=== PATIENT | male | born 1945 | race Caucasian/White ===

== ENCOUNTER 2017-11-13 23:15 | Inpatient (IN) | payer MEDICARE, BC ==
[2017-11-14] MEDS ORDERED: diphenhydrAMINE 50 MG/ML SDV IVPUSH ONE (00:08)
[2017-11-14] MEDS ORDERED: Acetaminophen 500 MG Tab PO ONE (00:26)
[2017-11-14] MEDS ORDERED: Sodium Chloride 0.9% 1,000 ML IV SCH (00:30)
--- NOTE | 2017-11-14 00:45 | EDM.PDOC ---
ED HPI GENERAL MEDICAL PROBLEM - General Chief Complaint: Gastrointestinal Problem Stated Complaint: FOOD POISIONING Time Seen by Provider: 11/14/17 00:25 Source of Information: Reports: Patient, Family (Spouse) History Limitations: Reports: Other (Decreased memory for details) - History of Present Illness INITIAL COMMENTS - FREE TEXT/NARRATIVE: Here with his Chief complaint Fever and diarrhea History of present illness 72-year-old male who started feeling ill sometime in the afternoon, perhaps as early as noon. Later in the afternoon started developing diarrhea and some central or upper abdominal cramping. Some nausea but no vomiting He felt chills and his when she took his temperature found that he had a fever which prompted her to bring him here. History of approximately tends inch bowel resection for complications of diverticulitis, cholecystectomy, possibly appendectomy and had cardiac bypass. reports that there has been some confusion over the last couple of months. Some routine tasks that he's done many times before he suddenly forgets how to do. The confusion is much worse since he has become sick with a fever in the last day, for example not knowing which hospitalization in which city he is in. 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 (see below) Other Treatments PROJECT DRILLING ENGINEER: none - Related Data Allergies Allergy/AdvReac Type Severity Reaction Status Date / Time hydrocodone Allergy Hives Verified 11/14/17 00:11 sulfamethoxazole Allergy Hives Verified 11/14/17 00:10 [From Bactrim] trimethoprim [From Bactrim] Allergy Hives Verified 11/14/17 00:10 Home Meds: Home Meds DULoxetine HCl [Duloxetine HCl] 60 mg PO DAILY 11/14/17 [History] Gabapentin [Neurontin] 600 mg PO 6XDAY 11/14/17 [History] Hydrochlorothiazide 25 mg PO DAILY 11/14/17 [History] Losartan [Cozaar] 100 mg PO DAILY 11/14/17 [History] Pravastatin Sodium 20 mg PO DAILY 11/14/17 [History] Tamsulosin HCl 0.4 mg PO DAILY 11/14/17 [History] predniSONE [Prednisone] 10 mg PO DAILY 11/14/17 [History] traMADol HCl [Tramadol HCl] 100 mg PO TID 11/14/17 [History] Past Medical History HEENT History: Reports: Impaired Vision Cardiovascular History: Reports: Bypass, High Cholesterol, Hypertension Gastrointestinal History: Reports: Bowel Obstruction, Diverticulosis, Hiatal Hernia Genitourinary History: Reports: BPH - Infectious Disease History Infectious Disease History: Reports: Chicken Pox, Measles - Past Surgical History HEENT Surgical History: Reports: Tonsillectomy Cardiovascular Surgical History: Reports: Coronary Artery Bypass GI Surgical History: Reports: Appendectomy, Cholecystectomy, Other (See Below) Other GI Surgeries/Procedures: Bowel Recetion Social & Family History - Family History Family Medical History: Unobtainable - Tobacco Use Smoking Status *Q: Never Smoker Second Hand Smoke Exposure: No - Caffeine Use Caffeine Use: Reports: Coffee - Alcohol Use Days Per Week of Alcohol Use: 7 Number of Drinks Per Day: 3 Total Drinks Per Week: 21 - Recreational Drug Use Recreational Drug Use: No ED ROS GENERAL - Review of Systems Review Of Systems: See Below Constitutional: Reports: Fever, Chills, Decreased Appetite HEENT: Reports: No Symptoms Respiratory: Reports: No Symptoms Cardiovascular: Reports: No Symptoms GI/Abdominal: Reports: Abdominal Pain (Mild, upper to mid abdomen, cramping), Diarrhea (5 times since the onset), Decreased Appetite, Nausea. Denies: Black Stool (No), Vomiting Musculoskeletal: Reports: No Symptoms Skin: Reports: No Symptoms Neurological: Reports: No Symptoms Psychiatric: Reports: Other (Decreased memory) ED EXAM, GI/ABD - Physical Exam Exam: See Below Exam Limited By: No Limitations General Appearance: Alert, Mild Distress, Other (Febrile and tachycardic, jovial and pleasant, blood pressure elevated) Eyes: Bilateral: Normal Appearance Ears: Normal External Exam, Normal TMs Nose: Normal Inspection, Normal Mucosa Throat/Mouth: Normal Inspection, Normal Oropharynx Head: Atraumatic, Normocephalic Neck: Normal Inspection, Supple Respiratory/Chest: No Respiratory Distress, No Accessory Muscle Use Cardiovascular: Regular Rate, Rhythm, Tachycardia GI/Abdominal Exam: Normal Bowel Sounds, Soft, Non-Tender, No Distention. No: Guarding, Rigid, Rebound, Tender Extremities: Normal Inspection Neurological: Alert, No Motor/Sensory Deficits Psychiatric: Normal Affect Skin Exam: Warm, Dry, Intact, Normal Color. No: Diaphoretic Course - Vital Signs Last Recorded V/S: Last Vital Signs Temp 38.1 C 11/14/17 02:26 Pulse 105 H 11/14/17 02:26 Resp 20 11/14/17 02:26 BP 132/69 11/14/17 02:26 Pulse Ox 96 11/14/17 02:26 - Orders/Labs/Meds Orders: Active Orders 24 hr Category Date Time Status Patient Status [ADT] Routine ADT 11/14/17 03:33 Ordered Oxygen Therapy [RC] PRN Care 11/14/17 03:33 Ordered Peripheral IV Care [RC] . DIRECTED Care 11/14/17 00:26 Active Up With Assistance [RC] ASDIRECTED Care 11/14/17 03:33 Ordered VTE/DVT Education [RC] Per Unit Routine Care 11/14/17 03:33 Ordered Vital Signs [RC] Q4H Care 11/14/17 03:33 Ordered Regular Diet [DIET] Diet 11/14/17 Breakfast Ordered BASIC METABOLIC PANEL,BMP [CHEM] Routine Lab 11/14/17 03:33 Ordered CBC WITH AUTO DIFF [HEME] Routine Lab 11/14/17 03:33 Ordered CULTURE BLOOD [BC] Urgent Lab 11/14/17 00:40 Received CULTURE BLOOD [BC] Urgent Lab 11/14/17 00:45 Received UA W/MICROSCOPIC [URIN] Stat Lab 11/14/17 01:35 Ordered Acetaminophen [Tylenol] Med 11/14/17 03:33 Ordered 650 mg PO Q4H PRN Ondansetron [Zofran ODT] Med 11/14/17 03:33 Ordered 4 mg PO Q8H PRN Sodium Chloride 0.9% [Normal Saline] 1,000 ml Med 11/14/17 00:30 Active IV ASDIRECTED Sodium Chloride 0.9% [Normal Saline] 1,000 ml Med 11/14/17 00:30 Active IV ASDIRECTED Blood Culture x2 Reflex Set [OM.PC] Urgent Oth 11/14/17 00:26 Ordered Peripheral IV Insertion Adult [OM.PC] Routine Oth 11/14/17 00:25 Ordered Resuscitation Status Routine Resus Stat 11/14/17 03:33 Ordered Medication Orders Acetaminophen (Tylenol) 650 mg PO Q4H PRN PRN Reason: Pain (Mild 1-3)/fever Sodium Chloride (Normal Saline) 1,000 mls @ 150 mls/hr IV ASDIRECTED DEAN Last Admin: 11/14/17 01:14 Dose: 250 mls/hr Sodium Chloride (Normal Saline) 1,000 mls @ 800 mls/hr IV ASDIRECTED DEAN Last Admin: 11/14/17 00:39 Dose: 800 mls/hr Ondansetron HCl (Zofran Odt) 4 mg PO Q8H PRN PRN Reason: Nausea able to take PO Labs: Laboratory Tests 11/14/17 11/14/17 11/14/17 Range/Units 00:40 00:40 00:40 WBC 12.2 H (4.5-11.0) K/uL RBC 3.98 L (4.30-5.90) M/uL Hgb 12.5 (12.0-15.0) g/dL Hct 39.5 L (40.0-54.0) % MCV 99 H (80-98) fL MCH 31 (27-31) pg MCHC 32 (32-36) % Plt Count 218 (150-400) K/uL Sodium 140 (140-148) mmol/L Potassium 4.1 (3.6-5.2) mmol/L Chloride 103 (100-108) mmol/L Carbon Dioxide 27 (21-32) mmol/L Anion Gap 10.3 (5.0-14.0) mmol/L BUN 27 H (7-18) mg/dL Creatinine 1.6 H (0.8-1.3) mg/dL Est Cr Clr Drug Dosing 43.79 mL/min Estimated GFR (MDRD) 43 L (>60) Glucose 95 (74-106) mg/dL Lactic Acid 1.3 (0.4-2.0) mmol/L Calcium 8.1 L (8.5-10.1) mg/dL Total Bilirubin 0.8 (0.2-1.0) mg/dL AST 15 (15-37) U/L ALT 25 (12-78) U/L Alkaline Phosphatase 103 (46-116) U/L Total Protein 6.6 (6.4-8.2) g/dL Albumin 3.2 L (3.4-5.0) g/dL Globulin 3.4 (2.3-3.5) g/dL Albumin/Globulin Ratio 0.9 L (1.2-2.2) Lipase (73-393) U/L Urine Color Urine Appearance Urine pH (4.5-8.0) Ur Specific [place] (1.008-1.030) Urine Protein (NEGATIVE) mg/dL Urine Glucose (UA) (NEGATIVE) mg/dL Urine Ketones (NEGATIVE) mg/dL Urine Occult Blood (NEGATIVE) Urine Nitrite (NEGAITVE) Urine Bilirubin (NEGATIVE) Urine Urobilinogen (NORMAL) mg/dL Ur Leukocyte Esterase (NEGATIVE) Urine RBC (0-5) Urine WBC (0-5) Ur Epithelial Cells Amorphous Sediment Urine Bacteria Urine Mucus 11/14/17 11/14/17 Range/Units 00:40 01:35 WBC (4.5-11.0) K/uL RBC (4.30-5.90) M/uL Hgb (12.0-15.0) g/dL Hct (40.0-54.0) % MCV (80-98) fL MCH (27-31) pg MCHC (32-36) % Plt Count (150-400) K/uL Sodium (140-148) mmol/L Potassium (3.6-5.2) mmol/L Chloride (100-108) mmol/L Carbon Dioxide (21-32) mmol/L Anion Gap (5.0-14.0) mmol/L BUN (7-18) mg/dL Creatinine (0.8-1.3) mg/dL Est Cr Clr Drug Dosing mL/min Estimated GFR (MDRD) (>60) Glucose (74-106) mg/dL Lactic Acid (0.4-2.0) mmol/L Calcium (8.5-10.1) mg/dL Total Bilirubin (0.2-1.0) mg/dL AST (15-37) U/L ALT (12-78) U/L Alkaline Phosphatase (46-116) U/L Total Protein (6.4-8.2) g/dL Albumin (3.4-5.0) g/dL Globulin (2.3-3.5) g/dL Albumin/Globulin Ratio (1.2-2.2) Lipase 111 (73-393) U/L Urine Color Yellow Urine Appearance Clear Urine pH 5.0 (4.5-8.0) Ur Specific [place] 1.015 (1.008-1.030) Urine Protein Negative (NEGATIVE) mg/dL Urine Glucose (UA) Normal (NEGATIVE) mg/dL Urine Ketones Negative (NEGATIVE) mg/dL Urine Occult Blood Moderate (NEGATIVE) Urine Nitrite Negative (NEGAITVE) Urine Bilirubin Small (NEGATIVE) Urine Urobilinogen Normal (NORMAL) mg/dL Ur Leukocyte Esterase Negative (NEGATIVE) Urine RBC 0-5 (0-5) Urine WBC 0-5 (0-5) Ur Epithelial Cells Few Amorphous Sediment Not seen Urine Bacteria Few Urine Mucus Not seen Meds: Medications Generic Name Dose Route Start Last Admin Trade Name Freq PRN Reason Stop Dose Admin Acetaminophen 650 mg 11/14/17 03:33 Tylenol PO Q4H PRN Pain (Mild 1-3)/fever Sodium Chloride 1,000 mls @ 150 mls/hr 11/14/17 00:30 11/14/17 01:14 Normal Saline IV 250 mls/hr ASDIRECTED DEAN Administration Sodium Chloride 1,000 mls @ 800 mls/hr 11/14/17 00:30 11/14/17 00:39 Normal Saline IV 800 mls/hr ASDIRECTED DEAN Administration Ondansetron HCl 4 mg 11/14/17 03:33 Zofran Odt PO Q8H PRN Nausea able to take PO Discontinued Medications Generic Name Dose Route Start Last Admin Trade Name Freq PRN Reason Stop Dose Admin Acetaminophen 1,000 mg 11/14/17 00:26 11/14/17 00:39 Tylenol Extra Strength PO 11/14/17 00:27 1,000 mg ONETIME ONE Administration - Re-Assessments/Exams Free Text/Narrative Re-Assessment/Exam: 11/14/17 00:44 72-year-old male with nausea diarrhea fever since approximately 8-10 hours. Notable fever and tachycardia. Differential diagnosis includes gastritis colitis diverticulitis among others. Intravenous saline, acetaminophen 1000 mg by mouth Lab tests including blood cultures 11/14/17 03:30 Mild elevation of white count, no significant liver enzyme elevation Mild elevation of urea and creatinine In view of his increased confusion, fever and tachycardia, recommended admission , Dr. Hendricks accepting physician Departure - Departure Time of Disposition: 03:31 Disposition: Admitted As Inpatient 65 Condition: Good Clinical Impression: Acute gastroenteritis, Moderate dehydration, Confusion associated with infection - Discharge Information Referrals: PCP,None [Primary Care Provider] - Forms: ED Department Discharge - My Orders Last 24 Hours: My Active Orders 11/14/17 00:25 Peripheral IV Insertion Adult [OM.PC] Routine 11/14/17 00:26 Peripheral IV Care [RC] . DIRECTED Blood Culture x2 Reflex Set [OM.PC] Urgent 11/14/17 00:30 Sodium Chloride 0.9% [Normal Saline] 1,000 ml IV ASDIRECTED Sodium Chloride 0.9% [Normal Saline] 1,000 ml IV ASDIRECTED 11/14/17 00:40 CULTURE BLOOD [BC] Urgent 11/14/17 00:45 CULTURE BLOOD [BC] Urgent 11/14/17 01:35 UA W/MICROSCOPIC [URIN] Stat 11/14/17 03:33 Patient Status [ADT] Routine Oxygen Therapy [RC] PRN Up With Assistance [RC] ASDIRECTED VTE/DVT Education [RC] Per Unit Routine Vital Signs [RC] Q4H BASIC METABOLIC PANEL,BMP [CHEM] Routine CBC WITH AUTO DIFF [HEME] Routine Acetaminophen [Tylenol] 650 mg PO Q4H PRN Ondansetron [Zofran ODT] 4 mg PO Q8H PRN Resuscitation Status Routine 11/14/17 Breakfast Regular Diet [DIET] - Assessment/Plan Last 24 Hours: My Active Orders 11/14/17 00:25 Peripheral IV Insertion Adult [OM.PC] Routine 11/14/17 00:26 Peripheral IV Care [RC] . DIRECTED Blood Culture x2 Reflex Set [OM.PC] Urgent 11/14/17 00:30 Sodium Chloride 0.9% [Normal Saline] 1,000 ml IV ASDIRECTED Sodium Chloride 0.9% [Normal Saline] 1,000 ml IV ASDIRECTED 11/14/17 00:40 CULTURE BLOOD [BC] Urgent 11/14/17 00:45 CULTURE BLOOD [BC] Urgent 11/14/17 01:35 UA W/MICROSCOPIC [URIN] Stat 11/14/17 03:33 Patient Status [ADT] Routine Oxygen Therapy [RC] PRN Up With Assistance [RC] ASDIRECTED VTE/DVT Education [RC] Per Unit Routine Vital Signs [RC] Q4H BASIC METABOLIC PANEL,BMP [CHEM] Routine CBC WITH AUTO DIFF [HEME] Routine Acetaminophen [Tylenol] 650 mg PO Q4H PRN Ondansetron [Zofran ODT] 4 mg PO Q8H PRN Resuscitation Status Routine 11/14/17 Breakfast Regular Diet [DIET]
[2017-11-14] MEDS: Sodium Chloride 0.9% 1,000 ML IV SCH ×4 (01:14→19:51)
[2017-11-14] MEDS ORDERED: Ondansetron 4 MG Tab.DIS PO PRN (03:33)
[2017-11-14] MEDS: Acetaminophen 325 MG Tab PO PRN ×3 (04:49→15:15)
[2017-11-14] MEDS ORDERED: cefTRIAXone 1 GM in Sodium Chloride 0.9% 50 ML IV SCH (07:00)
[2017-11-14] MEDS ORDERED: Levofloxacin/Dextrose 5%-Water 500 MG in Premix Bag 1 BAG IV SCH ×2 (07:00→08:00)
[2017-11-14] MEDS ORDERED: Iohexol 300 MG/ML 30 ML Bottle PO ONE (09:11)
--- NOTE | 2017-11-14 12:58 | CT ---
Chest Abdomen Pelvis wo Cont INDICATION: fever TECHNIQUE: CT images of the chest, abdomen and pelvis performed. Coronal reformatted images obtaine d. Small amount of oral contrast given no IV contrast. Dosage reduction and iterative reconstruction techniques employed. COMPARISON: None FINDINGS: Chest: No infiltrates or pleural effusions. Presumed thyroid goiter extending into the superior mediastinum in the right paratracheal region jason uring 4.5 cm. Other bilateral thyroid nodules. No other mediastinal mass. Coronary artery calcifications. Sternotomy. Small hiatal hernia. Abdomen pelvis: There is wall thickening in the descending colon with adjacent induration. No definit e diverticular disease. Findings may be due to colitis. The appendix is not seen with certainty. No s igns of bowel obstruction. There may be wall thickening extending into the proximal transverse colon. No other signs of colonic wall thickening. Diverticulosis descending and sigmoid colon without defin ite evidence of acute diverticulitis. No kidney stones or signs of obstruction. Small water density c yst lower pole right kidney. Gallbladder surgically absent. Liver, spleen, pancreas, and adrenal glan ds unremarkable. Abdominal aorta normal caliber. No retroperitoneal adenopathy. No free air or ascite s. Small fat-containing bilateral inguinal hernias and a small fat-containing umbilical hernia. Degen erative change right hip. Mild loss of vertebral body height at T12 and L1, likely chronic. Degenerat frank disc disease and hypertrophic change in the spine. IMPRESSION: 1. Colitis involving the ascending colon and proximal transverse colon. 2. Otherwise nothing acute in the chest abdomen or pelvis. 3. Other minor incidental findings, as above.
--- NOTE | 2017-11-14 13:05 | CR ---
Chest 2V INDICATION: abdominal pain, diarrhea, fever COMPARISON: 10/10/2016 FINDINGS: Two views. Mild cardiomegaly unchanged. Sternotomy and CABG. No infiltrates or pleural e ffusions. No signs of pulmonary edema. IMPRESSION: No acute change since 10/10/2016.
[2017-11-14] MEDS ORDERED: metroNIDAZOLE/Normal Saline 500 MG in Premix Bag 1 BAG IV SCH (17:00)
--- NOTE | 2017-11-14 17:52 | PCM.HP ---
H&P History of Present Illness - General Date of Service: 11/14/17 Admit Problem/Dx: Admission Diagnosis/Problem Admission Diagnosis/Problem Acute gastroenteritis Source of Information: Patient, Family History Limitations: Reports: No Limitations - History of Present Illness Initial Comments - Free Text/Narative: Helio is a 72-year-old male comes in with a history of starting to have abdominal pain yesterday increasing in severity to the point where he could hardly function and finally came into the emergency room. He has a history of diarrhea for 6 weeks but didn't have abdominal pain until last evening. He has a history of a episode of diverticulitis which ended up in a partial colon resection about 4 years ago due to diverticular disease. This gentleman has an unknown rheumatoid problem and taking prednisone on a regular basis. He was taking 40 mg a day and this was recently reduced, when he was in [place], back to 10 mg daily. His pain level is a 9-10/10 sharp cramping in character. Onset of Symptoms: Reports: Gradual Generalized Pain Score (Numeric/FACES): 2 - Related Data Allergies/Adverse Reactions: Allergies Allergy/AdvReac Type Severity Reaction Status Date / Time hydrocodone Allergy Hives Verified 11/14/17 00:11 sulfamethoxazole Allergy Hives Verified 11/14/17 00:10 [From Bactrim] trimethoprim [From Bactrim] Allergy Hives Verified 11/14/17 00:10 Home Medications: Home Meds DULoxetine HCl [Duloxetine HCl] 60 mg PO DAILY 11/14/17 [History] Gabapentin [Neurontin] 600 mg PO TID 11/14/17 [History] Hydrochlorothiazide 25 mg PO DAILY 11/14/17 [History] Losartan [Cozaar] 100 mg PO DAILY 11/14/17 [History] Pravastatin Sodium 20 mg PO DAILY 11/14/17 [History] Tamsulosin HCl 0.4 mg PO DAILY 11/14/17 [History] predniSONE [Prednisone] 10 mg PO DAILY 11/14/17 [History] traMADol HCl [Tramadol HCl] 100 mg PO TID 11/14/17 [History] Past Medical History HEENT History: Reports: Impaired Vision Cardiovascular History: Reports: Bypass, High Cholesterol, Hypertension Gastrointestinal History: Reports: Bowel Obstruction, Diverticulosis, Hiatal Hernia Genitourinary History: Reports: BPH - Infectious Disease History Infectious Disease History: Reports: Chicken Pox, Measles - Past Surgical History HEENT Surgical History: Reports: Tonsillectomy Cardiovascular Surgical History: Reports: Coronary Artery Bypass GI Surgical History: Reports: Appendectomy, Cholecystectomy, Other (See Below) Other GI Surgeries/Procedures: Bowel Recetion Social & Family History - Family History Family Medical History: Unobtainable - Tobacco Use Smoking Status *Q: Never Smoker Second Hand Smoke Exposure: No - Caffeine Use Caffeine Use: Reports: Coffee - Alcohol Use Days Per Week of Alcohol Use: 7 Number of Drinks Per Day: 5 Total Drinks Per Week: 35 Date of Last Drink: 11/13/17 Time of Last Drink: 14:00 - Recreational Drug Use Recreational Drug Use: No H&P Review of Systems - Review of Systems: Review Of Systems: See Below General: Reports: Fever, Chills, Weakness HEENT: Reports: No Symptoms Pulmonary: Reports: Shortness of Breath Gastrointestinal: Reports: Abdominal Pain Genitourinary: Reports: Frequency Musculoskeletal: Reports: Joint Pain Neurological: Reports: Weakness Exam - Exam Exam: See Below - Vital Signs Vital Signs: Last Vital Signs Temp 99.9 F 11/14/17 16:04 Pulse 83 11/14/17 16:04 Resp 16 11/14/17 16:04 BP 153/56 H 11/14/17 16:04 Pulse Ox 97 11/14/17 16:04 Weight: 254 lb 15.998 oz - Exam General: Alert, Oriented, 4 HEENT: PERRLA, Hearing Intact, Mucosa Moist & [place], Nares Patent, Normal Nasal Septum, Posterior Pharynx Clear, Conjunctiva Clear, EOMI, EACs Clear, TMs Clear Neck: Supple, Trachea Midline, 2 Lungs: Clear to Auscultation, Normal Respiratory Effort Cardiovascular: Regular Rate, Regular Rhythm GI/Abdominal Exam: Normal Bowel Sounds, Soft, Other (There is mild pain to palpation in the lower abdomen.) Peripheral Pulses: 1+: Radial (L), Radial (R) Skin: Warm Neurological: Cranial Nerves Intact, Reflexes Equal Bilateral Neuro Extensive - Mental Status: Alert Neuro Extensive - Motor, Sensory, Reflexes: CN II-XII Intact Psychiatric: Alert, Normal Affect, Normal Mood - Patient Data Lab Results Last 24 hrs: Laboratory Results - last 24 hr 11/14/17 11/14/17 11/14/17 Range/Units 00:40 00:40 00:40 WBC 12.2 H (4.5-11.0) K/uL RBC 3.98 L (4.30-5.90) M/uL Hgb 12.5 (12.0-15.0) g/dL Hct 39.5 L (40.0-54.0) % MCV 99 H (80-98) fL MCH 31 (27-31) pg MCHC 32 (32-36) % Plt Count 218 (150-400) K/uL Sodium 140 (140-148) mmol/L Potassium 4.1 (3.6-5.2) mmol/L Chloride 103 (100-108) mmol/L Carbon Dioxide 27 (21-32) mmol/L Anion Gap 10.3 (5.0-14.0) mmol/L BUN 27 H (7-18) mg/dL Creatinine 1.6 H (0.8-1.3) mg/dL Est Cr Clr Drug Dosing 43.79 mL/min Estimated GFR (MDRD) 43 L (>60) Glucose 95 (74-106) mg/dL Lactic Acid 1.3 (0.4-2.0) mmol/L Calcium 8.1 L (8.5-10.1) mg/dL Total Bilirubin 0.8 (0.2-1.0) mg/dL AST 15 (15-37) U/L ALT 25 (12-78) U/L Alkaline Phosphatase 103 (46-116) U/L Total Protein 6.6 (6.4-8.2) g/dL Albumin 3.2 L (3.4-5.0) g/dL Globulin 3.4 (2.3-3.5) g/dL Albumin/Globulin Ratio 0.9 L (1.2-2.2) Lipase (73-393) U/L Urine Color Urine Appearance Urine pH (4.5-8.0) Ur Specific [place] (1.008-1.030) Urine Protein (NEGATIVE) mg/dL Urine Glucose (UA) (NEGATIVE) mg/dL Urine Ketones (NEGATIVE) mg/dL Urine Occult Blood (NEGATIVE) Urine Nitrite (NEGAITVE) Urine Bilirubin (NEGATIVE) Urine Urobilinogen (NORMAL) mg/dL Ur Leukocyte Esterase (NEGATIVE) Urine RBC (0-5) Urine WBC (0-5) Ur Epithelial Cells Amorphous Sediment Urine Bacteria Urine Mucus 11/14/17 11/14/17 11/14/17 Range/Units 00:40 01:35 06:45 WBC 12.0 H (4.5-11.0) K/uL RBC 3.80 L (4.30-5.90) M/uL Hgb 12.4 (12.0-15.0) g/dL Hct 37.5 L (40.0-54.0) % MCV 99 H (80-98) fL MCH 33 H (27-31) pg MCHC 33 (32-36) % Plt Count 181 (150-400) K/uL Sodium (140-148) mmol/L Potassium (3.6-5.2) mmol/L Chloride (100-108) mmol/L Carbon Dioxide (21-32) mmol/L Anion Gap (5.0-14.0) mmol/L BUN (7-18) mg/dL Creatinine (0.8-1.3) mg/dL Est Cr Clr Drug Dosing mL/min Estimated GFR (MDRD) (>60) Glucose (74-106) mg/dL Lactic Acid (0.4-2.0) mmol/L Calcium (8.5-10.1) mg/dL Total Bilirubin (0.2-1.0) mg/dL AST (15-37) U/L ALT (12-78) U/L Alkaline Phosphatase (46-116) U/L Total Protein (6.4-8.2) g/dL Albumin (3.4-5.0) g/dL Globulin (2.3-3.5) g/dL Albumin/Globulin Ratio (1.2-2.2) Lipase 111 (73-393) U/L Urine Color Yellow Urine Appearance Clear Urine pH 5.0 (4.5-8.0) Ur Specific [place] 1.015 (1.008-1.030) Urine Protein Negative (NEGATIVE) mg/dL Urine Glucose (UA) Normal (NEGATIVE) mg/dL Urine Ketones Negative (NEGATIVE) mg/dL Urine Occult Blood Moderate (NEGATIVE) Urine Nitrite Negative (NEGAITVE) Urine Bilirubin Small (NEGATIVE) Urine Urobilinogen Normal (NORMAL) mg/dL Ur Leukocyte Esterase Negative (NEGATIVE) Urine RBC 0-5 (0-5) Urine WBC 0-5 (0-5) Ur Epithelial Cells Few Amorphous Sediment Not seen Urine Bacteria Few Urine Mucus Not seen 11/14/17 Range/Units 06:45 WBC (4.5-11.0) K/uL RBC (4.30-5.90) M/uL Hgb (12.0-15.0) g/dL Hct (40.0-54.0) % MCV (80-98) fL MCH (27-31) pg MCHC (32-36) % Plt Count (150-400) K/uL Sodium 139 L (140-148) mmol/L Potassium 4.1 (3.6-5.2) mmol/L Chloride 105 (100-108) mmol/L Carbon Dioxide 23 (21-32) mmol/L Anion Gap 15.1 H (5.0-14.0) mmol/L BUN 23 H (7-18) mg/dL Creatinine 1.4 H (0.8-1.3) mg/dL Est Cr Clr Drug Dosing 50.05 mL/min Estimated GFR (MDRD) 50 L (>60) Glucose 92 (74-106) mg/dL Lactic Acid (0.4-2.0) mmol/L Calcium 7.8 L (8.5-10.1) mg/dL Total Bilirubin (0.2-1.0) mg/dL AST (15-37) U/L ALT (12-78) U/L Alkaline Phosphatase (46-116) U/L Total Protein (6.4-8.2) g/dL Albumin (3.4-5.0) g/dL Globulin (2.3-3.5) g/dL Albumin/Globulin Ratio (1.2-2.2) Lipase (73-393) U/L Urine Color Urine Appearance Urine pH (4.5-8.0) Ur Specific [place] (1.008-1.030) Urine Protein (NEGATIVE) mg/dL Urine Glucose (UA) (NEGATIVE) mg/dL Urine Ketones (NEGATIVE) mg/dL Urine Occult Blood (NEGATIVE) Urine Nitrite (NEGAITVE) Urine Bilirubin (NEGATIVE) Urine Urobilinogen (NORMAL) mg/dL Ur Leukocyte Esterase (NEGATIVE) Urine RBC (0-5) Urine WBC (0-5) Ur Epithelial Cells Amorphous Sediment Urine Bacteria Urine Mucus Result Diagrams: 11/14/17 06:45 11/14/17 06:45 Goldy Results Last 24 hrs: Microbiology 11/14/17 05:58 Clostridium difficile (PCR) - Final Stool / Feces NEGATIVE CDIFF TOXIN Problem List Initiated/Reviewed/Updated: Yes Orders Last 24hrs: Active Orders 24 hr Category Date Time Status Patient Status [ADT] Routine ADT 11/14/17 03:33 Active Oxygen Therapy [RC] PRN Care 11/14/17 03:33 Active Peripheral IV Care [RC] Q12H Care 11/14/17 00:26 Active Up With Assistance [RC] ASDIRECTED Care 11/14/17 03:33 Active VTE/DVT Education [RC] Per Unit Routine Care 11/14/17 03:33 Active Vital Signs [RC] Q4H Care 11/14/17 03:33 Active Regular Diet [DIET] Diet 11/14/17 Breakfast Active CLOSTRIDIUM DIFFICILE BY PCR [RM] Routine Lab 11/14/17 05:58 Ordered CULTURE BLOOD [BC] Urgent Lab 11/14/17 00:40 Received CULTURE BLOOD [BC] Urgent Lab 11/14/17 00:45 Received UA W/MICROSCOPIC [URIN] Stat Lab 11/14/17 01:35 Ordered Acetaminophen [Tylenol] Med 11/14/17 03:33 Active 650 mg PO Q4H PRN DULoxetine [Cymbalta] Med 11/15/17 09:00 Active 60 mg PO DAILY Gabapentin [Neurontin] Med 11/14/17 21:00 Active 600 mg PO TID Hydrochlorothiazide Med 11/15/17 09:00 Active 25 mg PO DAILY Levofloxacin/Dextrose 5%-Water [Levaquin in D5W 500 MG/ Med 11/15/17 08:00 Active 100 ML] 500 mg Premix Bag 1 bag IV Q24H Losartan [Cozaar] Med 11/14/17 17:00 Active 100 mg PO DAILY Ondansetron [Zofran ODT] Med 11/14/17 03:33 Active 4 mg PO Q8H PRN Pravastatin [Pravachol] Med 11/15/17 09:00 Active 20 mg PO DAILY Sodium Chloride 0.9% [Normal Saline] 1,000 ml Med 11/14/17 00:30 Active IV ASDIRECTED Tamsulosin [Flomax] Med 11/15/17 09:00 Active 0.4 mg PO DAILY cefTRIAXone [Rocephin] 1 gm Med 11/15/17 06:00 Active Sodium Chloride 0.9% [Normal Saline] 50 ml IV Q24H predniSONE Med 11/15/17 08:00 Active 10 mg PO DAILY@0800 rOPINIRole [Requip] Med 11/14/17 21:00 Active 4 mg PO BEDTIME traMADol [Ultram] Med 11/14/17 21:00 Active 100 mg PO TID Blood Culture x2 Reflex Set [OM.PC] Urgent Oth 11/14/17 00:26 Ordered Peripheral IV Insertion Adult [OM.PC] Routine Oth 11/14/17 00:25 Ordered SCD [Sequential Compression Device] [OM.PC] Routine Oth 11/14/17 16:41 Ordered Resuscitation Status Routine Resus Stat 11/14/17 03:33 Ordered Medication Orders Acetaminophen (Tylenol) 650 mg PO Q4H PRN PRN Reason: Pain (Mild 1-3)/fever Last Admin: 11/14/17 15:15 Dose: 650 mg Admin: 11/14/17 10:13 Dose: 650 mg Admin: 11/14/17 04:49 Dose: 650 mg Duloxetine HCl (Cymbalta) 60 mg PO DAILY [facility] Gabapentin (Neurontin) 600 mg PO TID DEAN Hydrochlorothiazide (Hydrochlorothiazide) 25 mg PO DAILY [facility] Sodium Chloride (Normal Saline) 1,000 mls @ 150 mls/hr IV ASDIRECTED [facility] Last Admin: 11/14/17 12:51 Dose: 250 mls/hr Infusion: 11/14/17 12:51 Dose: 250 mls/hr Admin: 11/14/17 04:53 Dose: 250 mls/hr Infusion: 11/14/17 04:53 Dose: 250 mls/hr Admin: 11/14/17 01:14 Dose: 250 mls/hr Levofloxacin/Dextrose 500 mg/ (Premix) 100 mls @ 100 mls/hr IV Q24H [facility] Ceftriaxone Sodium 1 gm/ (Sodium Chloride) 50 mls @ 100 mls/hr IV Q24H [facility] Losartan Potassium (Cozaar) 100 mg PO DAILY [facility] Ondansetron HCl (Zofran Odt) 4 mg PO Q8H PRN PRN Reason: Nausea able to take PO Pravastatin Sodium (Pravachol) 20 mg PO DAILY [facility] Prednisone (Prednisone) 10 mg PO DAILY@0800 [facility]AN Ropinirole HCl (Requip) 4 mg PO BEDTIME [facility]AN Tamsulosin HCl (Flomax) 0.4 mg PO DAILY [facility] Tramadol HCl (Ultram) 100 mg PO TID DEAN Assessment/Plan Comment:: Assessment/Plan: #1. Abdominal pain: The etiology of the abdominal pain is unknown we'll do a CT of the abdomen and see if there is any evidence of an infection. #2. Diarrhea. The etiology of this is unknown at present time will get the CT of the abdomen and then discuss further. Test for diarrhea having ordered at the emergency room and are pending. #3. Restless leg syndrome: We will continue with the ropinirole. #4. Hyperlipidemia: We will continue with pravastatin. #5. History of irritable bowel syndrome: #6. Increased Frequency Urination: We'll do a bladder scan postvoid residual. #7. Chronic GERD: #8. Thyroid dysfunction: #9. Erectile dysfunction: #10. Benign prostatic hypertrophy:
[2017-11-14] MEDS: Losartan 50 MG Tab PO SCH (17:53)
[2017-11-14] MEDS ORDERED: Gabapentin 300 MG Cap PO SCH (19:00)
[2017-11-14] MEDS: traMADol 50 MG Tab PO SCH (20:42)
[2017-11-14] MEDS: Gabapentin 300 MG Cap PO SCH (20:43)
[2017-11-14] MEDS: rOPINIRole 1 MG Tab PO SCH (20:43)
[2017-11-15] MEDS: Acetaminophen 325 MG Tab PO PRN ×3 (01:51→18:27)
[2017-11-15] MEDS: Sodium Chloride 0.9% 1,000 ML IV SCH ×3 (01:54→17:58)
[2017-11-15] MEDS: cefTRIAXone 1 GM in Sodium Chloride 0.9% 50 ML IV SCH (05:20)
[2017-11-15] MEDS ORDERED: cefTRIAXone 1 GM in Sodium Chloride 0.9% 50 ML IV SCH (06:00)
[2017-11-15] MEDS: Levofloxacin/Dextrose 5%-Water 500 MG in Premix Bag 1 BAG IV SCH (07:23)
[2017-11-15] MEDS: predniSONE 10 MG Tab PO SCH (07:29)
[2017-11-15] MEDS ORDERED: Ciprofloxacin in D5W 400 MG in Premix Bag 1 BAG IV SCH ×2 (08:00)
[2017-11-15] MEDS: Losartan 50 MG Tab PO SCH (08:36)
[2017-11-15] MEDS: Tamsulosin 0.4 MG Cap.ER PO SCH (08:37)
[2017-11-15] MEDS: Gabapentin 300 MG Cap PO SCH ×3 (08:38→20:29)
[2017-11-15] MEDS: Hydrochlorothiazide 25 MG Tab PO SCH (08:38)
[2017-11-15] MEDS: DULoxetine 30 MG Cap PO SCH (08:38)
[2017-11-15] MEDS: traMADol 50 MG Tab PO SCH ×3 (08:46→20:29)
[2017-11-15] MEDS: Pravastatin 20 MG Tab PO SCH (08:46)
--- NOTE | 2017-11-15 15:07 | PCM.PN ---
- General Info Date of Service: 11/15/17 Functional Status: Reports: Pain Controlled - Review of Systems General: Reports: Weakness HEENT: Reports: No Symptoms Pulmonary: Reports: No Symptoms Cardiovascular: Reports: No Symptoms Gastrointestinal: Reports: Abdominal Pain, Other (He's had no diarrhea today) Genitourinary: Reports: No Symptoms Musculoskeletal: Reports: No Symptoms Skin: Reports: No Symptoms Neurological: Reports: No Symptoms Psychiatric: Reports: No Symptoms - Patient Data Vitals - Most Recent: Last Vital Signs Temp 96.3 F 11/15/17 12:28 Pulse 68 11/15/17 12:28 Resp 16 11/15/17 12:28 BP 134/64 11/15/17 12:28 Pulse Ox 98 11/15/17 12:28 Weight - Most Recent: 254 lb 15.998 oz I&O - Last 24 Hours: Intake & Output 11/14/17 11/15/17 11/15/17 22:59 06:59 14:59 Intake Total 3111 1770 540 Output Total 775 300 600 Balance 2336 1470 -60 Goldy Results Last 24 Hours: Microbiology 11/14/17 00:40 Aerobic Blood Culture - Preliminary Blood - Arm, Right NO GROWTH AFTER 1 DAY Anaerobic Blood Culture - Preliminary NO GROWTH AFTER 1 DAY 11/14/17 00:45 Aerobic Blood Culture - Preliminary Blood - Arm, Left NO GROWTH AFTER 1 DAY Anaerobic Blood Culture - Preliminary NO GROWTH AFTER 1 DAY Med Orders - Current: Current Medications Acetaminophen (Tylenol) 650 mg PO Q4H PRN PRN Reason: Pain (Mild 1-3)/fever Last Admin: 11/15/17 07:28 Dose: 650 mg Duloxetine HCl (Cymbalta) 60 mg PO DAILY [facility] [place] Last Admin: 11/15/17 08:38 Dose: 60 mg Gabapentin (Neurontin) 600 mg PO TID [facility] [place] Last Admin: 11/15/17 13:33 Dose: 600 mg Hydrochlorothiazide (Hydrochlorothiazide) 25 mg PO DAILY [facility] [place] Last Admin: 11/15/17 08:38 Dose: 25 mg Sodium Chloride (Normal Saline) 1,000 mls @ 150 mls/hr IV ASDIRECTED [facility] [place] Last Admin: 11/15/17 11:20 Dose: 150 mls/hr Levofloxacin/Dextrose 500 mg/ (Premix) 100 mls @ 100 mls/hr IV Q24H [facility] [place] Last Admin: 11/15/17 07:23 Dose: 100 mls/hr Ceftriaxone Sodium 1 gm/ (Sodium Chloride) 50 mls @ 100 mls/hr IV Q24H [facility] [place] Last Admin: 11/15/17 05:20 Dose: 100 mls/hr Losartan Potassium (Cozaar) 100 mg PO DAILY [facility] [place] Last Admin: 11/15/17 08:36 Dose: 100 mg Ondansetron HCl (Zofran Odt) 4 mg PO Q8H PRN PRN Reason: Nausea able to take PO Last Admin: 11/14/17 20:41 Dose: 4 mg Pravastatin Sodium (Pravachol) 20 mg PO DAILY [facility] [place] Last Admin: 11/15/17 08:46 Dose: 20 mg Prednisone (Prednisone) 10 mg PO DAILY@0800 [facility] [place] Last Admin: 11/15/17 07:29 Dose: 10 mg Ropinirole HCl (Requip) 4 mg PO BEDTIME [facility] [place] Last Admin: 11/14/17 20:43 Dose: 4 mg Tamsulosin HCl (Flomax) 0.4 mg PO DAILY [facility] [place] Last Admin: 11/15/17 08:37 Dose: 0.4 mg Tramadol HCl (Ultram) 100 mg PO TID [facility] [place] Last Admin: 11/15/17 13:33 Dose: 100 mg Discontinued Medications Acetaminophen (Tylenol Extra Strength) 1,000 mg PO ONETIME ONE Stop: 11/14/17 00:27 Last Admin: 11/14/17 00:39 Dose: 1,000 mg Gabapentin (Neurontin) 600 mg PO 6XDAY [facility] [place] Sodium Chloride (Normal Saline) 1,000 mls @ 800 mls/hr IV ASDIRECTED [facility] [place] Last Admin: 11/14/17 00:39 Dose: 800 mls/hr Ceftriaxone Sodium 1 gm/ (Sodium Chloride) 50 mls @ 100 mls/hr IV Q24H [facility] [place] Last Admin: 11/14/17 06:20 Dose: 100 mls/hr Ceftriaxone Sodium 1 gm/ (Sodium Chloride) 50 mls @ 100 mls/hr IV Q24H [facility] [place] Levofloxacin/Dextrose 500 mg/ (Premix) 100 mls @ 100 mls/hr IV Q24H [facility] [place] Last Admin: 11/14/17 07:42 Dose: 100 mls/hr Iohexol (Omnipaque) 20 ml PO ONETIME ONE Stop: 11/14/17 09:12 Last Admin: 11/14/17 10:07 Dose: 20 ml - Exam General: Alert, Oriented HEENT: Pupils Equal, Pupils Reactive, EOMI, Mucous Membr. Moist/[place] Neck: Supple Lungs: Clear to Auscultation, Normal Respiratory Effort Cardiovascular: Regular Rate, Regular Rhythm GI/Abdominal Exam: Normal Bowel Sounds, Soft, No Distention Extremities: Normal Inspection, Normal Range of Motion, Non-Tender, No Pedal Edema, Normal Capillary Refill Peripheral Pulses: 1+: Radial (L), Radial (R) Skin: Warm, Dry, Intact Neurological: No New Focal Deficit - Problem List Review Problem List Initiated/Reviewed/Updated: Yes - My Orders Last 24 Hours: My Active Orders 11/14/17 16:41 SCD [Sequential Compression Device] [OM.PC] Routine 11/14/17 17:00 Losartan [Cozaar] 100 mg PO DAILY 11/14/17 21:00 Gabapentin [Neurontin] 600 mg PO TID rOPINIRole [Requip] 4 mg PO BEDTIME traMADol [Ultram] 100 mg PO TID 11/14/17 23:10 CPAP Noctural Home [RT BiPAP/CPAP] [RC] ASDIRECTED 11/15/17 06:00 cefTRIAXone [Rocephin] 1 gm Sodium Chloride 0.9% [Normal Saline] 50 ml IV Q24H 11/15/17 08:00 Levofloxacin/Dextrose 5%-Water [Levaquin in D5W 500 MG/100 ML] 500 mg Premix Bag 1 bag IV Q24H predniSONE 10 mg PO DAILY@0800 11/15/17 09:00 DULoxetine [Cymbalta] 60 mg PO DAILY Hydrochlorothiazide 25 mg PO DAILY Pravastatin [Pravachol] 20 mg PO DAILY Tamsulosin [Flomax] 0.4 mg PO DAILY 11/15/17 12:48 PT Evaluation and Treatment [CONS] Routine 11/16/17 05:11 CBC WITH AUTO DIFF [HEME] Routine COMPREHENSIVE METABOLIC PN,CMP [CHEM] Routine - Plan Plan:: Assessment/Plan: #1. Abdominal pain: The etiology of the abdominal pain is unknown. The CT of the abdomen did not give any answers to why he is so ill nor given Ancef for his diarrhea except for he has colitis that's evident which could be a bacterial problem. He is on antibiotics at the present time. #2. Diarrhea. The etiology is probably secondary to colitis as diagnosed by the CT of the abdomen. We'll continue with the antibiotics. #3. Restless leg syndrome: We will continue with the ropinirole. #4. Hyperlipidemia: We will continue with pravastatin. #5. History of irritable bowel syndrome: #6. Increased Frequency Urination: We'll do a bladder scan postvoid residual. #7. Chronic GERD: #8. Thyroid dysfunction: #9. Erectile dysfunction: #10. Benign prostatic hypertrophy: We'll do blood work in the morning and if continues to be stable will discharge home on antibiotics.
[2017-11-15] MEDS: rOPINIRole 1 MG Tab PO SCH (20:30)
[2017-11-16] MEDS: Sodium Chloride 0.9% 1,000 ML IV SCH ×2 (00:59→08:04)
[2017-11-16] MEDS: cefTRIAXone 1 GM in Sodium Chloride 0.9% 50 ML IV SCH (05:22)
[2017-11-16] MEDS: Acetaminophen 325 MG Tab PO PRN (05:32)
[2017-11-16] MEDS: Levofloxacin/Dextrose 5%-Water 500 MG in Premix Bag 1 BAG IV SCH (08:53)
[2017-11-16] MEDS: predniSONE 10 MG Tab PO SCH (08:55)
[2017-11-16] MEDS: Hydrochlorothiazide 25 MG Tab PO SCH (08:56)
[2017-11-16] MEDS: Gabapentin 300 MG Cap PO SCH (08:57)
[2017-11-16] MEDS: Losartan 50 MG Tab PO SCH (08:59)
[2017-11-16] MEDS: Tamsulosin 0.4 MG Cap.ER PO SCH (09:02)
[2017-11-16] MEDS: DULoxetine 30 MG Cap PO SCH (09:02)
[2017-11-16] MEDS: Pravastatin 20 MG Tab PO SCH (09:03)
[2017-11-16] MEDS: traMADol 50 MG Tab PO SCH (09:09)
--- NOTE | 2017-11-16 09:10 | PCM.PN ---
- General Info Date of Service: 11/16/17 Admission Dx/Problem (Free Text): He is feeling much better and feels like he can go home and he is doing quite well at present time. He's not had any diarrhea but still has weakness. Functional Status: Reports: Pain Controlled - Review of Systems General: Reports: Weakness, Fatigue HEENT: Reports: No Symptoms Pulmonary: Reports: No Symptoms Cardiovascular: Reports: No Symptoms Gastrointestinal: Reports: Other (He has almost no abdominal pain at present time) Genitourinary: Reports: No Symptoms Musculoskeletal: Reports: No Symptoms Skin: Reports: No Symptoms Neurological: Reports: No Symptoms Psychiatric: Reports: No Symptoms - Patient Data Vitals - Most Recent: Last Vital Signs Temp 96.5 F 11/16/17 08:00 Pulse 62 11/16/17 08:00 Resp 17 11/16/17 08:00 BP 125/51 L 11/16/17 08:59 Pulse Ox 99 11/16/17 08:00 Weight - Most Recent: 254 lb 15.998 oz I&O - Last 24 Hours: Intake & Output 11/15/17 11/16/17 11/16/17 22:59 06:59 14:59 Intake Total 1986 1785 400 Output Total 675 1400 150 Balance 1311 385 250 Lab Results Last 24 Hours: Laboratory Results - last 24 hr 11/16/17 11/16/17 Range/Units 05:15 05:15 WBC 6.2 (4.5-11.0) K/uL RBC 3.41 L (4.30-5.90) M/uL Hgb 10.8 L (12.0-15.0) g/dL Hct 34.2 L (40.0-54.0) % MCV 100 H (80-98) fL MCH 32 H (27-31) pg MCHC 32 (32-36) % Plt Count 162 (150-400) K/uL Neut % (Auto) 63 (36-66) % Lymph % (Auto) 20 L (24-44) % [place] % (Auto) 13 H (2-6) % Eos % (Auto) 4 (2-4) % Baso % (Auto) 0 (0-1) % Sodium 143 (140-148) mmol/L Potassium 3.9 (3.6-5.2) mmol/L Chloride 111 H (100-108) mmol/L Carbon Dioxide 26 (21-32) mmol/L Anion Gap 9.9 (5.0-14.0) mmol/L BUN 11 D (7-18) mg/dL Creatinine 1.2 (0.8-1.3) mg/dL Est Cr Clr Drug Dosing 58.15 mL/min Estimated GFR (MDRD) 59 L (>60) Glucose 95 (74-106) mg/dL Calcium 8.1 L (8.5-10.1) mg/dL Total Bilirubin 0.4 (0.2-1.0) mg/dL AST 12 L (15-37) U/L ALT 18 (12-78) U/L Alkaline Phosphatase 69 (46-116) U/L Total Protein 5.4 L (6.4-8.2) g/dL Albumin 2.3 L (3.4-5.0) g/dL Globulin 3.1 (2.3-3.5) g/dL Albumin/Globulin Ratio 0.7 L (1.2-2.2) [place]y Results Last 24 Hours: Microbiology 11/14/17 00:45 Aerobic Blood Culture - Preliminary Blood - Arm, Left NO GROWTH AFTER 2 DAYS Anaerobic Blood Culture - Preliminary NO GROWTH AFTER 2 DAYS 11/14/17 00:40 Aerobic Blood Culture - Preliminary Blood - Arm, Right NO GROWTH AFTER 2 DAYS Anaerobic Blood Culture - Preliminary NO GROWTH AFTER 2 DAYS Med Orders - Current: Current Medications Acetaminophen (Tylenol) 650 mg PO Q4H PRN PRN Reason: Pain (Mild 1-3)/fever Last Admin: 11/16/17 05:32 Dose: 650 mg Duloxetine HCl (Cymbalta) 60 mg PO DAILY [facility] Last Admin: 11/16/17 09:02 Dose: 60 mg Gabapentin (Neurontin) 600 mg PO TID [facility] Last Admin: 11/16/17 08:57 Dose: 600 mg Hydrochlorothiazide (Hydrochlorothiazide) 25 mg PO DAILY [facility] Last Admin: 11/16/17 08:56 Dose: 25 mg Sodium Chloride (Normal Saline) 1,000 mls @ 150 mls/hr IV ASDIRECTED [facility] Last Admin: 11/16/17 08:04 Dose: 150 mls/hr Levofloxacin/Dextrose 500 mg/ (Premix) 100 mls @ 100 mls/hr IV Q24H [facility] Last Admin: 11/16/17 08:53 Dose: 100 mls/hr Ceftriaxone Sodium 1 gm/ (Sodium Chloride) 50 mls @ 100 mls/hr IV Q24H [facility] Last Admin: 11/16/17 05:22 Dose: 100 mls/hr Losartan Potassium (Cozaar) 100 mg PO DAILY [facility] Last Admin: 11/16/17 08:59 Dose: 100 mg Ondansetron HCl (Zofran Odt) 4 mg PO Q8H PRN PRN Reason: Nausea able to take PO Last Admin: 11/14/17 20:41 Dose: 4 mg Pravastatin Sodium (Pravachol) 20 mg PO DAILY [facility] Last Admin: 11/16/17 09:03 Dose: 20 mg Prednisone (Prednisone) 10 mg PO DAILY@0800 [facility] Last Admin: 11/16/17 08:55 Dose: 10 mg Ropinirole HCl (Requip) 4 mg PO BEDTIME [facility] Last Admin: 11/15/17 20:30 Dose: 4 mg Tamsulosin HCl (Flomax) 0.4 mg PO DAILY [facility] Last Admin: 11/16/17 09:02 Dose: 0.4 mg Tramadol HCl (Ultram) 100 mg PO TID [facility] Last Admin: 11/15/17 20:29 Dose: 100 mg Discontinued Medications Acetaminophen (Tylenol Extra Strength) 1,000 mg PO ONETIME ONE Stop: 11/14/17 00:27 Last Admin: 11/14/17 00:39 Dose: 1,000 mg Gabapentin (Neurontin) 600 mg PO 6XDAY [facility] Sodium Chloride (Normal Saline) 1,000 mls @ 800 mls/hr IV ASDIRECTED [facility] Last Admin: 11/14/17 00:39 Dose: 800 mls/hr Ceftriaxone Sodium 1 gm/ (Sodium Chloride) 50 mls @ 100 mls/hr IV Q24H [facility] Last Admin: 11/14/17 06:20 Dose: 100 mls/hr Ceftriaxone Sodium 1 gm/ (Sodium Chloride) 50 mls @ 100 mls/hr IV Q24H [facility] Levofloxacin/Dextrose 500 mg/ (Premix) 100 mls @ 100 mls/hr IV Q24H [facility] Last Admin: 11/14/17 07:42 Dose: 100 mls/hr Iohexol (Omnipaque) 20 ml PO ONETIME ONE Stop: 11/14/17 09:12 Last Admin: 11/14/17 10:07 Dose: 20 ml - Exam General: Alert, Oriented HEENT: Pupils Equal, Pupils Reactive, EOMI, Mucous Membr. Moist/[place] Neck: Supple Lungs: Clear to Auscultation, Normal Respiratory Effort Cardiovascular: Regular Rate, Regular Rhythm GI/Abdominal Exam: Normal Bowel Sounds, Soft, Non-Tender, No Organomegaly, No Distention, No Abnormal Bruit, No Mass, Pelvis Stable Extremities: Normal Inspection, Normal Range of Motion, Non-Tender, No Pedal Edema, Normal Capillary Refill Peripheral Pulses: 1+: Radial (L), Radial (R) Skin: Warm, Dry, Intact Psy/Mental Status: Alert, Normal Affect, Normal Mood - Problem List Review Problem List Initiated/Reviewed/Updated: Yes - My Orders Last 24 Hours: My Active Orders 11/15/17 09:00 DULoxetine [Cymbalta] 60 mg PO DAILY Hydrochlorothiazide 25 mg PO DAILY Pravastatin [Pravachol] 20 mg PO DAILY Tamsulosin [Flomax] 0.4 mg PO DAILY 11/15/17 12:48 PT Evaluation and Treatment [CONS] Routine 11/16/17 09:05 Ready for Discharge [RC] PER UNIT ROUTINE - Plan Plan:: Assessment/Plan: #1. Abdominal pain: The etiology of the abdominal pain is unknown. The CT of the abdomen did not give any answers to why he is so ill. it could have been colitis or of bacteria. He is on antibiotics at the present time. #2. Diarrhea. The etiology is probably secondary to colitis as diagnosed by the CT of the abdomen. We'll continue with the antibiotics. #3. Restless leg syndrome: We will continue with the ropinirole. #4. Hyperlipidemia: We will continue with pravastatin. #5. History of irritable bowel syndrome: #6. Increased Frequency Urination: We'll do a bladder scan postvoid residual. #7. Chronic GERD: #8. Thyroid dysfunction: #9. Erectile dysfunction: #10. Benign prostatic hypertrophy: His blood pressure is 1 25/71 and his weight is 254. He is afebrile at 96.5 with a pulse of 62. His white count today is 6.2 with a hemoglobin 12.8 MCV 100 platelet count 162,000. Neutrophils are 63% lymphs are 20 monitor 13. EGFR is 59 with a creatinine of 1.2. His calcium is slightly low at 8.1 liver functions unremarkable as well as alkaline phosphatase. I feel it is medically stable to be discharged home. I will see him in the office in one or 2 weeks. He'll continue with antibiotics for 5 days.
--- NOTE | 2017-11-16 09:11 | PCM.DCSUM1 ---
Discharge Summary - Hospital Course Diagnosis: Stroke: No - Discharge Data Discharge Date: 11/16/17 Discharge Disposition: Home, Self-Care 01 Condition: Good - Patient Summary/Data Consults: Consultations 11/15/17 12:48 PT Evaluation and Treatment [CONS] Routine Please Evaluate and Treat. PT Reason for Consult: Strengthening Pending Discharge: Yes Discharge Disposition: Home This query below is only for informational purposes and is not editable. Admission Diagnosis/Problem: Acute gastroenteritis Hospital Course: He had a gradual recovery from severe abdominal pain and having diarrhea for his diarrhea was controlled after being in the hospital and receiving antibiotics. The CT of the abdomen showed evidence of colitis with no evidence of diverticulitis which was originally thought. He is being discharged home in stable condition to take antibiotics for another 5 days. Medicines were called in. - Patient Instructions Diet: Heart Healthy Diet - Discharge Plan Prescriptions/Med Rec: Cefadroxil [Duricef] 500 mg PO BID 5 Days #10 cap Ciprofloxacin HCl [Cipro] 500 mg PO BID 5 Days #10 tablet Home Medications: Home Meds DULoxetine HCl [Duloxetine HCl] 60 mg PO DAILY 11/14/17 [History] Gabapentin [Neurontin] 600 mg PO TID 11/14/17 [History] Hydrochlorothiazide 25 mg PO DAILY 11/14/17 [History] Losartan [Cozaar] 100 mg PO DAILY 11/14/17 [History] Pravastatin Sodium 20 mg PO DAILY 11/14/17 [History] Tamsulosin HCl 0.4 mg PO DAILY 11/14/17 [History] predniSONE [Prednisone] 10 mg PO DAILY 11/14/17 [History] traMADol HCl [Tramadol HCl] 100 mg PO TID 11/14/17 [History] Cefadroxil [Duricef] 500 mg PO BID 5 Days #10 cap 11/16/17 [Rx] Ciprofloxacin HCl [Cipro] 500 mg PO BID 5 Days #10 tablet 11/16/17 [Rx] rOPINIRole [Requip] 4 mg PO BEDTIME tablet 11/16/17 [Rx] Patient Handouts: Cefadroxil tablets or capsules, Ciprofloxacin tablets Forms: ED Department Discharge Referrals: PCP,None [Primary Care Provider] - - Discharge Summary/Plan Comment Discharge Summary/Plan Comment: Assessment/Plan: #1. Abdominal pain: The etiology of the abdominal pain is unknown. The CT of the abdomen did not give any answers to why he is so ill. it could have been colitis or of bacteria. He is on antibiotics at the present time. #2. Diarrhea. The etiology is probably secondary to colitis as diagnosed by the CT of the abdomen. We'll continue with the antibiotics. #3. Restless leg syndrome: We will continue with the ropinirole. #4. Hyperlipidemia: We will continue with pravastatin. #5. History of irritable bowel syndrome: #6. Increased Frequency Urination: We'll do a bladder scan postvoid residual. #7. Chronic GERD: #8. Thyroid dysfunction: #9. Erectile dysfunction: #10. Benign prostatic hypertrophy: His blood pressure is 1 25/71 and his weight is 254. He is afebrile at 96.5 with a pulse of 62. His white count today is 6.2 with a hemoglobin 12.8 MCV 100 platelet count 162,000. Neutrophils are 63% lymphs are 20 monitor 13. EGFR is 59 with a creatinine of 1.2. His calcium is slightly low at 8.1 liver functions unremarkable as well as alkaline phosphatase. I feel it is medically stable to be discharged home. I will see him in the office in one or 2 weeks. He'll continue with antibiotics for 5 days. - Review of Systems General: Reports: Weakness HEENT: Reports: No Symptoms Pulmonary: Reports: No Symptoms Cardiovascular: Reports: No Symptoms Gastrointestinal: Reports: Decreased Appetite Genitourinary: Reports: No Symptoms Musculoskeletal: Reports: No Symptoms Skin: Reports: No Symptoms Neurological: Reports: No Symptoms Psychiatric: Reports: No Symptoms - Patient Data Vitals - Most Recent: Last Vital Signs Temp 96.5 F 11/16/17 08:00 Pulse 62 11/16/17 08:00 Resp 17 11/16/17 08:00 BP 125/51 L 11/16/17 08:59 Pulse Ox 99 11/16/17 08:00 Weight - Most Recent: 254 lb 15.998 oz I&O - Last 24 hours: Intake & Output 11/15/17 11/16/17 11/16/17 22:59 06:59 14:59 Intake Total 1986 1785 400 Output Total 675 1400 150 Balance 1311 385 250 Lab Results - Last 24 hrs: Laboratory Results - last 24 hr 11/16/17 11/16/17 Range/Units 05:15 05:15 WBC 6.2 (4.5-11.0) K/uL RBC 3.41 L (4.30-5.90) M/uL Hgb 10.8 L (12.0-15.0) g/dL Hct 34.2 L (40.0-54.0) % MCV 100 H (80-98) fL MCH 32 H (27-31) pg MCHC 32 (32-36) % Plt Count 162 (150-400) K/uL Neut % (Auto) 63 (36-66) % Lymph % (Auto) 20 L (24-44) % [place] % (Auto) 13 H (2-6) % Eos % (Auto) 4 (2-4) % Baso % (Auto) 0 (0-1) % Sodium 143 (140-148) mmol/L Potassium 3.9 (3.6-5.2) mmol/L Chloride 111 H (100-108) mmol/L Carbon Dioxide 26 (21-32) mmol/L Anion Gap 9.9 (5.0-14.0) mmol/L BUN 11 D (7-18) mg/dL Creatinine 1.2 (0.8-1.3) mg/dL Est Cr Clr Drug Dosing 58.15 mL/min Estimated GFR (MDRD) 59 L (>60) Glucose 95 (74-106) mg/dL Calcium 8.1 L (8.5-10.1) mg/dL Total Bilirubin 0.4 (0.2-1.0) mg/dL AST 12 L (15-37) U/L ALT 18 (12-78) U/L Alkaline Phosphatase 69 (46-116) U/L Total Protein 5.4 L (6.4-8.2) g/dL Albumin 2.3 L (3.4-5.0) g/dL Globulin 3.1 (2.3-3.5) g/dL Albumin/Globulin Ratio 0.7 L (1.2-2.2) MAGALY Results - Last 24 hrs: Microbiology 11/14/17 00:45 Aerobic Blood Culture - Preliminary Blood - Arm, Left NO GROWTH AFTER 2 DAYS Anaerobic Blood Culture - Preliminary NO GROWTH AFTER 2 DAYS 11/14/17 00:40 Aerobic Blood Culture - Preliminary Blood - Arm, Right NO GROWTH AFTER 2 DAYS Anaerobic Blood Culture - Preliminary NO GROWTH AFTER 2 DAYS Med Orders - Current: Current Medications Acetaminophen (Tylenol) 650 mg PO Q4H PRN PRN Reason: Pain (Mild 1-3)/fever Last Admin: 11/16/17 05:32 Dose: 650 mg Duloxetine HCl (Cymbalta) 60 mg PO DAILY [facility] Last Admin: 11/16/17 09:02 Dose: 60 mg Gabapentin (Neurontin) 600 mg PO TID [facility] Last Admin: 11/16/17 08:57 Dose: 600 mg Hydrochlorothiazide (Hydrochlorothiazide) 25 mg PO DAILY [facility] Last Admin: 11/16/17 08:56 Dose: 25 mg Sodium Chloride (Normal Saline) 1,000 mls @ 150 mls/hr IV ASDIRECTED [facility] Last Admin: 11/16/17 08:04 Dose: 150 mls/hr Levofloxacin/Dextrose 500 mg/ (Premix) 100 mls @ 100 mls/hr IV Q24H [facility] Last Admin: 11/16/17 08:53 Dose: 100 mls/hr Ceftriaxone Sodium 1 gm/ (Sodium Chloride) 50 mls @ 100 mls/hr IV Q24H [facility] Last Admin: 11/16/17 05:22 Dose: 100 mls/hr Losartan Potassium (Cozaar) 100 mg PO DAILY [facility] Last Admin: 11/16/17 08:59 Dose: 100 mg Ondansetron HCl (Zofran Odt) 4 mg PO Q8H PRN PRN Reason: Nausea able to take PO Last Admin: 11/14/17 20:41 Dose: 4 mg Pravastatin Sodium (Pravachol) 20 mg PO DAILY [facility] Last Admin: 11/16/17 09:03 Dose: 20 mg Prednisone (Prednisone) 10 mg PO DAILY@0800 [facility] Last Admin: 11/16/17 08:55 Dose: 10 mg Ropinirole HCl (Requip) 4 mg PO BEDTIME [facility] Last Admin: 11/15/17 20:30 Dose: 4 mg Tamsulosin HCl (Flomax) 0.4 mg PO DAILY [facility] Last Admin: 11/16/17 09:02 Dose: 0.4 mg Tramadol HCl (Ultram) 100 mg PO TID [facility] Last Admin: 11/16/17 09:09 Dose: 100 mg Discontinued Medications Acetaminophen (Tylenol Extra Strength) 1,000 mg PO ONETIME ONE Stop: 11/14/17 00:27 Last Admin: 11/14/17 00:39 Dose: 1,000 mg Gabapentin (Neurontin) 600 mg PO 6XDAY [facility] Sodium Chloride (Normal Saline) 1,000 mls @ 800 mls/hr IV ASDIRECTED [facility] Last Admin: 11/14/17 00:39 Dose: 800 mls/hr Ceftriaxone Sodium 1 gm/ (Sodium Chloride) 50 mls @ 100 mls/hr IV Q24H [facility] Last Admin: 11/14/17 06:20 Dose: 100 mls/hr Ceftriaxone Sodium 1 gm/ (Sodium Chloride) 50 mls @ 100 mls/hr IV Q24H [facility] Levofloxacin/Dextrose 500 mg/ (Premix) 100 mls @ 100 mls/hr IV Q24H [facility] Last Admin: 11/14/17 07:42 Dose: 100 mls/hr Iohexol (Omnipaque) 20 ml PO ONETIME ONE Stop: 11/14/17 09:12 Last Admin: 11/14/17 10:07 Dose: 20 ml - Exam General: Reports: Alert, Oriented HEENT: Reports: Pupils Equal, Pupils Reactive, EOMI, Mucous Membr. Moist/[place] Neck: Reports: Supple Lungs: Reports: Clear to Auscultation, Normal Respiratory Effort Cardiovascular: Reports: Regular Rate, Regular Rhythm GI/Abdominal Exam: Normal Bowel Sounds, Soft, Non-Tender, No Organomegaly, No Distention, No Abnormal Bruit, No Mass, Pelvis Stable Extremities: Normal Inspection, Normal Range of Motion, Non-Tender, No Pedal Edema, Normal Capillary Refill Skin: Reports: Warm, Dry, Intact Psy/Mental Status: Reports: Alert, Normal Affect, Normal Mood
== END 2017-11-16 11:05 | disposition home or self-care (01) | DRG 392 ==
LOC: JP.ED 23:15 → JP.MS 11-14 03:33
PROVIDERS: ADMIT Internal Medicine; ATTEND Internal Medicine
DX: K52.9 Noninfective gastroenteritis and colitis, unspecified (principal); R50.9 Fever, unspecified; I10 Essential (primary) hypertension; G25.81 Restless legs syndrome; E78.5 Hyperlipidemia, unspecified; R35.0 Frequency of micturition; K21.9 Gastro-esophageal reflux disease without esophagitis; E07.9 Disorder of thyroid, unspecified; N52.9 Male erectile dysfunction, unspecified; N40.0 Benign prostatic hyperplasia without lower urinary tract symptoms; Z95.1 Presence of aortocoronary bypass graft; H54.7 Unspecified visual loss; Z79.52 Long term (current) use of systemic steroids; Z88.1 Allergy status to other antibiotic agents; Z88.5 Allergy status to narcotic agent; Z87.19 Personal history of other diseases of the digestive system
CPT/HCPCS: 36415; 80053; 81001; 83605; 83690; 85027; 87040 ×2; 96360; 96361; 99284 ×2; A9270; J7030 ×2; 51798; 71046; 71046-26; 71250; 71250-26; 74176; 74176-26; 80048; 85025; 87493; 97110-GP; 97162-GP; 97530-GP; J0696; J1956; J7050; Q9965

== ENCOUNTER 2018-11-03 07:07 | Inpatient (IN) | payer MEDICARE, BC ==
[2018-11-03] MEDS ORDERED: Gabapentin 300 MG Cap PO ONE (07:45)
[2018-11-03] MEDS ORDERED: fentaNYL 100 MCG/2 ML SDV ONE (08:14)
[2018-11-03] MEDS ORDERED: Midazolam 1 MG/ML 2 ML SDV ONE (08:15)
[2018-11-03] MEDS ORDERED: Propofol 200 MG/20 ML SDV ONE ×3 (08:15→11:16)
[2018-11-03] MEDS: Nozin Nasal Sanitizer NASBOTH SCH ×3 (08:25→21:07)
[2018-11-03] MEDS: Lactated Ringers 1,000 ML IV SCH ×2 (09:16→21:57)
[2018-11-03] MEDS ORDERED: Povidone-Iodine 10% Soln 118.25 ML Bottle ONE (09:37)
[2018-11-03] MEDS: ceFAZolin 2 GM in Premix Bag 1 BAG IV ONE ×2 (10:52→18:02)
[2018-11-03] MEDS: Tranexamic Acid 1,000 MG in Sodium Chloride 0.9% 50 ML IV SCH ×2 (10:53→14:02)
[2018-11-03] MEDS ORDERED: Lactated Ringers 1,000 ML ONE (12:03)
[2018-11-03] MEDS ORDERED: Acetaminophen 325 MG Tab PO PRN (12:39)
[2018-11-03] MEDS ORDERED: Acetaminophen/HYDROcodone 325-5 MG Tab PO PRN (12:39)
[2018-11-03] MEDS ORDERED: Sodium Chloride 0.9% 1,000 ML IV SCH (12:45)
--- NOTE | 2018-11-03 13:27 | CR ---
Knee 1V or 2V Lt: 11/03/2018 12:21 PM INDICATION: Knee arthroplasty COMPARISON: 10/21/2018. FINDINGS/IMPRESSION: Interval changes of left total knee arthroplasty are present without apparent hardware complication or periprosthetic fracture. Small amount of expected intra-articular air and fluid are noted.
[2018-11-03] MEDS: Acetaminophen/oxyCODONE 325-5 MG Tab PO PRN ×3 (14:09→23:37)
[2018-11-03] MEDS: Gabapentin 300 MG Cap PO SCH ×2 (14:10→21:08)
[2018-11-03] MEDS: Morphine 2 MG/ML Syringe IVPUSH PRN ×2 (16:09→21:04)
[2018-11-03] MEDS: ceFAZolin 1 GM in Premix Bag 1 BAG IV SCH (17:50)
[2018-11-03] MEDS ORDERED: Nozin Nasal Sanitizer NASBOTH SCH (21:00)
[2018-11-03] MEDS: rOPINIRole 1 MG Tab PO SCH (21:09)
[2018-11-04] MEDS: ceFAZolin 1 GM in Premix Bag 1 BAG IV SCH ×2 (02:50→09:51)
[2018-11-04] MEDS: Acetaminophen/oxyCODONE 325-5 MG Tab PO PRN ×5 (03:37→21:15)
[2018-11-04] MEDS: Losartan 50 MG Tab PO SCH (08:18)
[2018-11-04] MEDS: DULoxetine 30 MG Cap PO SCH (08:18)
[2018-11-04] MEDS: Hydrochlorothiazide 25 MG Tab PO SCH (08:18)
[2018-11-04] MEDS: Tamsulosin 0.4 MG Cap.ER PO SCH (08:18)
[2018-11-04] MEDS: Enoxaparin 30 MG/0.3 ML Syringe SUBCUT SCH (08:18)
[2018-11-04] MEDS: Gabapentin 300 MG Cap PO SCH ×3 (08:19→21:15)
[2018-11-04] MEDS: Pravastatin 20 MG Tab PO SCH (08:19)
[2018-11-04] MEDS: predniSONE 10 MG Tab PO SCH (08:19)
[2018-11-04] MEDS: Nozin Nasal Sanitizer NASBOTH SCH ×2 (08:20→21:17)
[2018-11-04] MEDS: Morphine 2 MG/ML Syringe IVPUSH PRN ×2 (09:49→22:24)
[2018-11-04] MEDS: Lactated Ringers 1,000 ML IV SCH ×2 (09:51→23:58)
[2018-11-04] MEDS: rOPINIRole 1 MG Tab PO SCH (21:15)
[2018-11-05] MEDS: Acetaminophen/oxyCODONE 325-5 MG Tab PO PRN ×4 (03:38→17:42)
[2018-11-05] MEDS: Morphine 2 MG/ML Syringe IVPUSH PRN (10:10)
[2018-11-05] MEDS: Enoxaparin 30 MG/0.3 ML Syringe SUBCUT SCH (10:18)
[2018-11-05] MEDS: Nozin Nasal Sanitizer NASBOTH SCH ×2 (10:18→22:14)
[2018-11-05] MEDS: Hydrochlorothiazide 25 MG Tab PO SCH (10:19)
[2018-11-05] MEDS: Gabapentin 300 MG Cap PO SCH ×3 (10:19→22:16)
[2018-11-05] MEDS: Pravastatin 20 MG Tab PO SCH (10:19)
[2018-11-05] MEDS: Tamsulosin 0.4 MG Cap.ER PO SCH (10:20)
[2018-11-05] MEDS: Losartan 50 MG Tab PO SCH (10:20)
[2018-11-05] MEDS: predniSONE 10 MG Tab PO SCH (10:21)
[2018-11-05] MEDS: DULoxetine 30 MG Cap PO SCH (10:21)
--- NOTE | 2018-11-05 11:23 | PCM.SURGPN ---
- General Info Date of Service: 11/04/18 Date of Surgery/Procedure: 11/03/18 POD#: 1 Post-Op Diagnosis: S/P left TKA Functional Status: Reports: Tolerating Diet, Other (Pain not well controlled) - Review of Systems General: Reports: No Symptoms HEENT: Reports: No Symptoms Pulmonary: Reports: No Symptoms Cardiovascular: Reports: No Symptoms Gastrointestinal: Reports: No Symptoms Neurological: Reports: No Symptoms Psychiatric: Reports: No Symptoms - Patient Data Vitals - Most Recent: Last Vital Signs Temp 38.0 C 11/05/18 07:38 Pulse 108 H 11/05/18 07:38 Resp 18 11/05/18 07:38 BP 177/78 H 11/05/18 10:20 Pulse Ox 96 11/05/18 07:38 Weight - Most Recent: 119.159 kg I&O - Last 24 Hours: Intake & Output 11/04/18 11/05/18 11/05/18 22:59 06:59 14:59 Intake Total 1061 1201 Output Total 85 325 125 Balance 976 876 -125 Med Orders - Current: Current Medications Acetaminophen (Tylenol) 650 mg PO Q4H PRN PRN Reason: Pain/Fever Bandage/Support Products ( 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) 1 applic NASBOTH BID [facility] Stop: 11/09/18 09:01 Last Admin: 11/05/18 10:18 Dose: 1 applic Docusate Sodium (Colace) 100 mg PO BID PRN PRN Reason: Constipation Duloxetine HCl (Cymbalta) 60 mg PO DAILY [facility] Last Admin: 11/05/18 10:21 Dose: 60 mg Enoxaparin Sodium (Lovenox) 30 mg SUBCUT DAILY [facility] Last Admin: 11/05/18 10:18 Dose: 30 mg Gabapentin (Neurontin) 600 mg PO TID [facility] Last Admin: 11/05/18 10:19 Dose: 600 mg Hydrochlorothiazide (Hydrochlorothiazide) 25 mg PO DAILY [facility] Last Admin: 11/05/18 10:19 Dose: 25 mg Lactated Ringer's (Ringers, Lactated) 1,000 mls @ 75 mls/hr IV ASDIRECTED [facility] Last Admin: 11/04/18 23:58 Dose: 75 mls/hr Sodium Chloride (Normal Saline) 1,000 mls @ 125 mls/hr IV ASDIRECTED [facility] Losartan Potassium (Cozaar) 100 mg PO DAILY [facility] Last Admin: 11/05/18 10:20 Dose: 100 mg Magnesium Hydroxide (Milk Of Magnesia) 30 ml PO Q8H PRN PRN Reason: Constipation Morphine Sulfate (Morphine) 2 mg IVPUSH Q1H PRN PRN Reason: Pain (severe 7-10) Last Admin: 11/05/18 10:10 Dose: 2 mg Oxycodone/Acetaminophen (Percocet 325-5 Mg) 1 - 2 tab PO Q4H PRN PRN Reason: Pain (severe 7-10) Last Admin: 11/05/18 10:04 Dose: 2 tab Pravastatin Sodium (Pravachol) 20 mg PO DAILY [facility] Last Admin: 11/05/18 10:19 Dose: 20 mg Prednisone (Prednisone) 10 mg PO DAILY [facility] Last Admin: 11/05/18 10:21 Dose: 10 mg Ropinirole HCl (Requip) 4 mg PO BEDTIME [facility] Last Admin: 11/04/18 21:15 Dose: 4 mg Tamsulosin HCl (Flomax) 0.4 mg PO DAILY [facility] Last Admin: 11/05/18 10:20 Dose: 0.4 mg Discontinued Medications Bandage/Support Products ( 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) 1 applic NASBOTH BID [facility] Stop: 11/09/18 21:01 Last Admin: 11/03/18 21:07 Dose: Not Given Fentanyl (Sublimaze) Confirm Administered Dose 100 mcg .ROUTE .STK-MED ONE Stop: 11/03/18 08:15 Gabapentin (Neurontin) 300 mg PO ONETIME ONE Stop: 11/03/18 07:46 Last Admin: 11/03/18 08:21 Dose: 300 mg Cefazolin Sodium/Dextrose 2 gm (/ Premix) 50 mls @ 100 mls/hr IV ONETIME ONE Stop: 11/03/18 09:29 Last Admin: 11/03/18 18:02 Dose: Not Given Tranexamic Acid 1,000 mg/ (Sodium Chloride) 60 mls @ 240 mls/hr IV Q3H [facility] Stop: 11/03/18 12:44 Last Admin: 11/03/18 14:02 Dose: 240 mls/hr Lactated Ringer's (Ringers, Lactated) Confirm Administered Dose 1,000 mls @ as directed .ROUTE .STK-MED ONE Stop: 11/03/18 12:04 Cefazolin Sodium/Dextrose 1 gm (/ Premix) 50 mls @ 100 mls/hr IV Q8H [facility] Stop: 11/04/18 10:29 Last Admin: 11/04/18 09:51 Dose: 100 mls/hr Midazolam HCl (Versed 1 Mg/Ml) Confirm Administered Dose 2 mg .ROUTE .STK-MED ONE Stop: 11/03/18 08:16 Povidone Iodine (Betadine 10% Soln) Confirm Administered Dose 1 ml .ROUTE .STK- MED ONE Stop: 11/03/18 09:38 Last Admin: 11/03/18 10:58 Dose: 3 ml Propofol (Diprivan 20 Ml) Confirm Administered Dose 200 mg .ROUTE .STK-MED ONE Stop: 11/03/18 08:16 Propofol (Diprivan 20 Ml) Confirm Administered Dose 200 mg .ROUTE .STK-MED ONE Stop: 11/03/18 10:03 Propofol (Diprivan 20 Ml) Confirm Administered Dose 200 mg .ROUTE .STK-MED ONE Stop: 11/03/18 11:17 - Exam Wound/Incisions: Dressing Dry and Intact, No Drainage General: Alert, Oriented HEENT: Pupils Equal Neck: Supple Lungs: Clear to Auscultation, Normal Respiratory Effort Cardiovascular: Regular Rate, Regular Rhythm GI/Abdominal Exam: Normal Bowel Sounds, Soft, Non-Tender, No Organomegaly, No Distention, No Abnormal Bruit, No Mass, Pelvis Stable Extremities: Other (minimal swelling, no signs of DVT) Skin: Warm, Dry, Intact Neurological: No New Focal Deficit Psy/Mental Status: Alert, Normal Affect, Normal Mood - Problem List & Annotations (1) Osteoarthritis, knee SNOMED Code(s): 886824513 Code(s): M17.10 - UNILATERAL PRIMARY OSTEOARTHRITIS, UNSPECIFIED KNEE Status: Acute Current Visit: Yes Qualifiers: Osteoarthritis type: primary Laterality: left Qualified Code(s): M17.12 - Unilateral primary osteoarthritis, left knee (2) Status post total left knee replacement SNOMED Code(s): 9885135325751, 0490187494864 Code(s): Z96.652 - PRESENCE OF LEFT ARTIFICIAL KNEE JOINT Status: Acute Current Visit: Yes - Problem List Review Problem List Initiated/Reviewed/Updated: Yes - My Orders Last 24 Hours: Active Orders 24 hr Category Date Time Status Admission Status [Patient Status] [ADT] Routine ADT 11/04/18 13:35 Active DC [place] Catheter [Urinary Catheter Removal] [RC] Per Care 11/04/18 12:05 Active Unit Routine Convert IV to Saline Lock [OM.PC] Routine Oth 11/05/18 11:16 Ordered Medication Orders Acetaminophen (Tylenol) 650 mg PO Q4H PRN PRN Reason: Pain/Fever Bandage/Support Products ( 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) 1 applic NASBOTH BID [facility] Stop: 11/09/18 09:01 Last Admin: 11/05/18 10:18 Dose: 1 applic Admin: 11/04/18 21:17 Dose: 1 applic Admin: 11/04/18 08:20 Dose: 1 applic Admin: 11/03/18 21:07 Dose: 1 applic Admin: 11/03/18 18:01 Dose: Admin: 11/03/18 08:25 Dose: 1 applic Docusate Sodium (Colace) 100 mg PO BID PRN PRN Reason: Constipation Duloxetine HCl (Cymbalta) 60 mg PO DAILY [facility] Last Admin: 11/05/18 10:21 Dose: 60 mg Admin: 11/04/18 08:18 Dose: 60 mg Enoxaparin Sodium (Lovenox) 30 mg SUBCUT DAILY [facility] Last Admin: 11/05/18 10:18 Dose: 30 mg Admin: 11/04/18 08:18 Dose: 30 mg Gabapentin (Neurontin) 600 mg PO TID [facility] Last Admin: 11/05/18 10:19 Dose: 600 mg Admin: 11/04/18 21:15 Dose: 600 mg Admin: 11/04/18 14:53 Dose: 600 mg Admin: 11/04/18 08:19 Dose: 600 mg Admin: 11/03/18 21:08 Dose: 600 mg Admin: 11/03/18 14:10 Dose: 600 mg Hydrochlorothiazide (Hydrochlorothiazide) 25 mg PO DAILY [facility] Last Admin: 11/05/18 10:19 Dose: 25 mg Admin: 11/04/18 08:18 Dose: 25 mg Lactated Ringer's (Ringers, Lactated) 1,000 mls @ 75 mls/hr IV ASDIRECTED [facility] Last Admin: 11/04/18 23:58 Dose: 75 mls/hr Infusion: 11/04/18 23:11 Dose: 75 mls/hr Admin: 11/04/18 09:51 Dose: 75 mls/hr Infusion: 11/04/18 09:51 Dose: 75 mls/hr Admin: 11/03/18 21:57 Dose: 75 mls/hr Infusion: 11/03/18 21:57 Dose: 75 mls/hr Admin: 11/03/18 09:16 Dose: 75 mls/hr Sodium Chloride (Normal Saline) 1,000 mls @ 125 mls/hr IV ASDIRECTED [facility] Losartan Potassium (Cozaar) 100 mg PO DAILY [facility] Last Admin: 11/05/18 10:20 Dose: 100 mg Admin: 11/04/18 08:18 Dose: 100 mg Magnesium Hydroxide (Milk Of Magnesia) 30 ml PO Q8H PRN PRN Reason: Constipation Morphine Sulfate (Morphine) 2 mg IVPUSH Q1H PRN PRN Reason: Pain (severe 7-10) Last Admin: 11/05/18 10:10 Dose: 2 mg Admin: 11/04/18 22:24 Dose: 2 mg Admin: 11/04/18 09:49 Dose: 2 mg Admin: 11/03/18 21:04 Dose: 2 mg Admin: 11/03/18 16:09 Dose: 2 mg Oxycodone/Acetaminophen (Percocet 325-5 Mg) 1 - 2 tab PO Q4H PRN PRN Reason: Pain (severe 7-10) Last Admin: 11/05/18 10:04 Dose: 2 tab Admin: 11/05/18 03:38 Dose: 2 tab Admin: 11/04/18 21:15 Dose: 2 tab Admin: 11/04/18 17:06 Dose: 2 tab Admin: 11/04/18 11:46 Dose: 2 tab Admin: 11/04/18 07:45 Dose: 2 tab Admin: 11/04/18 03:37 Dose: 2 tab Admin: 11/03/18 23:37 Dose: 2 tab Admin: 11/03/18 17:50 Dose: 2 tab Admin: 11/03/18 14:09 Dose: 2 tab Pravastatin Sodium (Pravachol) 20 mg PO DAILY [facility] Last Admin: 11/05/18 10:19 Dose: 20 mg Admin: 11/04/18 08:19 Dose: 20 mg Prednisone (Prednisone) 10 mg PO DAILY [facility] Last Admin: 11/05/18 10:21 Dose: 10 mg Admin: 11/04/18 08:19 Dose: 10 mg Ropinirole HCl (Requip) 4 mg PO BEDTIME [facility] Last Admin: 11/04/18 21:15 Dose: 4 mg Admin: 11/03/18 21:09 Dose: 4 mg Tamsulosin HCl (Flomax) 0.4 mg PO DAILY [facility] Last Admin: 11/05/18 10:20 Dose: 0.4 mg Admin: 11/04/18 08:18 Dose: 0.4 mg - Assessment Assessment (Free Text/Narrative):: POD #1 left total knee, difficulty with pain control, up in chair, Woods in place - Plan Plan (Free Text/Narrative):: Up with PT/OT, try to D/C Woods, work on scheduling pain meds.
--- NOTE | 2018-11-05 11:29 | PCM.SURGPN ---
- General Info Date of Service: 11/05/18 Date of Surgery/Procedure: 11/03/18 POD#: 2 Post-Op Diagnosis: S/P left TKA Functional Status: Reports: Tolerating Diet, Ambulating, Urinating, Other (one episode of vomiting last night) - Review of Systems General: Reports: No Symptoms HEENT: Reports: No Symptoms Pulmonary: Reports: No Symptoms Cardiovascular: Reports: No Symptoms Gastrointestinal: Reports: Vomiting Genitourinary: Reports: No Symptoms Skin: Reports: No Symptoms Neurological: Reports: No Symptoms Psychiatric: Reports: No Symptoms - Patient Data Vitals - Most Recent: Last Vital Signs Temp 38.0 C 11/05/18 07:38 Pulse 108 H 11/05/18 07:38 Resp 18 11/05/18 07:38 BP 177/78 H 11/05/18 10:20 Pulse Ox 96 11/05/18 07:38 Weight - Most Recent: 119.159 kg I&O - Last 24 Hours: Intake & Output 11/04/18 11/05/18 11/05/18 22:59 06:59 14:59 Intake Total 1061 1201 Output Total 85 325 125 Balance 976 876 -125 Med Orders - Current: Current Medications Acetaminophen (Tylenol) 650 mg PO Q4H PRN PRN Reason: Pain/Fever Bandage/Support Products ( Nasal Hop Strainer) 1 applic NASBOTH BID [facility] Stop: 11/09/18 09:01 Last Admin: 11/05/18 10:18 Dose: 1 applic Docusate Sodium (Colace) 100 mg PO BID PRN PRN Reason: Constipation Duloxetine HCl (Cymbalta) 60 mg PO DAILY [facility] Last Admin: 11/05/18 10:21 Dose: 60 mg Enoxaparin Sodium (Lovenox) 30 mg SUBCUT DAILY [facility] Last Admin: 11/05/18 10:18 Dose: 30 mg Gabapentin (Neurontin) 600 mg PO TID [facility] Last Admin: 11/05/18 10:19 Dose: 600 mg Hydrochlorothiazide (Hydrochlorothiazide) 25 mg PO DAILY [facility] Last Admin: 11/05/18 10:19 Dose: 25 mg Lactated Ringer's (Ringers, Lactated) 1,000 mls @ 75 mls/hr IV ASDIRECTED [facility] Last Admin: 11/04/18 23:58 Dose: 75 mls/hr Sodium Chloride (Normal Saline) 1,000 mls @ 125 mls/hr IV ASDIRECTED [facility] Losartan Potassium (Cozaar) 100 mg PO DAILY [facility] Last Admin: 11/05/18 10:20 Dose: 100 mg Magnesium Hydroxide (Milk Of Magnesia) 30 ml PO Q8H PRN PRN Reason: Constipation Morphine Sulfate (Morphine) 2 mg IVPUSH Q1H PRN PRN Reason: Pain (severe 7-10) Last Admin: 11/05/18 10:10 Dose: 2 mg Oxycodone/Acetaminophen (Percocet 325-5 Mg) 1 - 2 tab PO Q4H PRN PRN Reason: Pain (severe 7-10) Last Admin: 11/05/18 10:04 Dose: 2 tab Pravastatin Sodium (Pravachol) 20 mg PO DAILY [facility] Last Admin: 11/05/18 10:19 Dose: 20 mg Prednisone (Prednisone) 10 mg PO DAILY [facility] Last Admin: 11/05/18 10:21 Dose: 10 mg Ropinirole HCl (Requip) 4 mg PO BEDTIME [facility] Last Admin: 11/04/18 21:15 Dose: 4 mg Tamsulosin HCl (Flomax) 0.4 mg PO DAILY [facility] Last Admin: 11/05/18 10:20 Dose: 0.4 mg Discontinued Medications Bandage/Support Products ( Nasal Hop Strainer) 1 applic NASBOTH BID [facility] Stop: 11/09/18 21:01 Last Admin: 11/03/18 21:07 Dose: Not Given Fentanyl (Sublimaze) Confirm Administered Dose 100 mcg .ROUTE .STK-MED ONE Stop: 11/03/18 08:15 Gabapentin (Neurontin) 300 mg PO ONETIME ONE Stop: 11/03/18 07:46 Last Admin: 11/03/18 08:21 Dose: 300 mg Cefazolin Sodium/Dextrose 2 gm (/ Premix) 50 mls @ 100 mls/hr IV ONETIME ONE Stop: 11/03/18 09:29 Last Admin: 11/03/18 18:02 Dose: Not Given Tranexamic Acid 1,000 mg/ (Sodium Chloride) 60 mls @ 240 mls/hr IV Q3H [facility] Stop: 11/03/18 12:44 Last Admin: 11/03/18 14:02 Dose: 240 mls/hr Lactated Ringer's (Ringers, Lactated) Confirm Administered Dose 1,000 mls @ as directed .ROUTE .STK-MED ONE Stop: 11/03/18 12:04 Cefazolin Sodium/Dextrose 1 gm (/ Premix) 50 mls @ 100 mls/hr IV Q8H [facility] Stop: 11/04/18 10:29 Last Admin: 11/04/18 09:51 Dose: 100 mls/hr Midazolam HCl (Versed 1 Mg/Ml) Confirm Administered Dose 2 mg .ROUTE .STK-MED ONE Stop: 11/03/18 08:16 Povidone Iodine (Betadine 10% Soln) Confirm Administered Dose 1 ml .ROUTE .STK- MED ONE Stop: 11/03/18 09:38 Last Admin: 11/03/18 10:58 Dose: 3 ml Propofol (Diprivan 20 Ml) Confirm Administered Dose 200 mg .ROUTE .STK-MED ONE Stop: 11/03/18 08:16 Propofol (Diprivan 20 Ml) Confirm Administered Dose 200 mg .ROUTE .STK-MED ONE Stop: 11/03/18 10:03 Propofol (Diprivan 20 Ml) Confirm Administered Dose 200 mg .ROUTE .STK-MED ONE Stop: 11/03/18 11:17 - Exam Wound/Incisions: Healing Well, No Drainage General: Alert, Oriented HEENT: Pupils Equal Neck: Supple Lungs: Clear to Auscultation, Normal Respiratory Effort Cardiovascular: Regular Rate, Regular Rhythm GI/Abdominal Exam: Normal Bowel Sounds, Soft, Non-Tender, No Organomegaly, No Distention, No Abnormal Bruit, No Mass, Pelvis Stable Extremities: Other (Dressing changed, incision looks good, no drainage, Knee at approx 75 degrees in chair) Skin: Warm, Dry, Intact Neurological: No New Focal Deficit Psy/Mental Status: Alert, Normal Affect, Normal Mood - Problem List & Annotations (1) Osteoarthritis, knee SNOMED Code(s): 124754455 Code(s): M17.10 - UNILATERAL PRIMARY OSTEOARTHRITIS, UNSPECIFIED KNEE Status: Acute Current Visit: Yes Qualifiers: Osteoarthritis type: primary Laterality: left Qualified Code(s): M17.12 - Unilateral primary osteoarthritis, left knee (2) Status post total left knee replacement SNOMED Code(s): 9698973356239, 9591398233492 Code(s): Z96.652 - PRESENCE OF LEFT ARTIFICIAL KNEE JOINT Status: Acute Current Visit: Yes - Problem List Review Problem List Initiated/Reviewed/Updated: Yes - My Orders Last 24 Hours: Active Orders 24 hr Category Date Time Status Admission Status [Patient Status] [ADT] Routine ADT 11/04/18 13:35 Active DC [place] Catheter [Urinary Catheter Removal] [RC] Per Care 11/04/18 12:05 Active Unit Routine Convert IV to Saline Lock [OM.PC] Routine Oth 11/05/18 11:16 Ordered Medication Orders Acetaminophen (Tylenol) 650 mg PO Q4H PRN PRN Reason: Pain/Fever Bandage/Support Products ( Nasal Hop Strainer) 1 applic NASBOTH BID [facility] Stop: 11/09/18 09:01 Last Admin: 11/05/18 10:18 Dose: 1 applic Admin: 11/04/18 21:17 Dose: 1 applic Admin: 11/04/18 08:20 Dose: 1 applic Admin: 11/03/18 21:07 Dose: 1 applic Admin: 11/03/18 18:01 Dose: Admin: 11/03/18 08:25 Dose: 1 applic Docusate Sodium (Colace) 100 mg PO BID PRN PRN Reason: Constipation Duloxetine HCl (Cymbalta) 60 mg PO DAILY [facility] Last Admin: 11/05/18 10:21 Dose: 60 mg Admin: 11/04/18 08:18 Dose: 60 mg Enoxaparin Sodium (Lovenox) 30 mg SUBCUT DAILY [facility] Last Admin: 11/05/18 10:18 Dose: 30 mg Admin: 11/04/18 08:18 Dose: 30 mg Gabapentin (Neurontin) 600 mg PO TID [facility] Last Admin: 11/05/18 10:19 Dose: 600 mg Admin: 11/04/18 21:15 Dose: 600 mg Admin: 11/04/18 14:53 Dose: 600 mg Admin: 11/04/18 08:19 Dose: 600 mg Admin: 11/03/18 21:08 Dose: 600 mg Admin: 11/03/18 14:10 Dose: 600 mg Hydrochlorothiazide (Hydrochlorothiazide) 25 mg PO DAILY [facility] Last Admin: 11/05/18 10:19 Dose: 25 mg Admin: 11/04/18 08:18 Dose: 25 mg Lactated Ringer's (Ringers, Lactated) 1,000 mls @ 75 mls/hr IV ASDIRECTED [facility] Last Admin: 11/04/18 23:58 Dose: 75 mls/hr Infusion: 11/04/18 23:11 Dose: 75 mls/hr Admin: 11/04/18 09:51 Dose: 75 mls/hr Infusion: 11/04/18 09:51 Dose: 75 mls/hr Admin: 11/03/18 21:57 Dose: 75 mls/hr Infusion: 11/03/18 21:57 Dose: 75 mls/hr Admin: 11/03/18 09:16 Dose: 75 mls/hr Sodium Chloride (Normal Saline) 1,000 mls @ 125 mls/hr IV ASDIRECTED [facility] Losartan Potassium (Cozaar) 100 mg PO DAILY [facility] Last Admin: 11/05/18 10:20 Dose: 100 mg Admin: 11/04/18 08:18 Dose: 100 mg Magnesium Hydroxide (Milk Of Magnesia) 30 ml PO Q8H PRN PRN Reason: Constipation Morphine Sulfate (Morphine) 2 mg IVPUSH Q1H PRN PRN Reason: Pain (severe 7-10) Last Admin: 11/05/18 10:10 Dose: 2 mg Admin: 11/04/18 22:24 Dose: 2 mg Admin: 11/04/18 09:49 Dose: 2 mg Admin: 11/03/18 21:04 Dose: 2 mg Admin: 11/03/18 16:09 Dose: 2 mg Oxycodone/Acetaminophen (Percocet 325-5 Mg) 1 - 2 tab PO Q4H PRN PRN Reason: Pain (severe 7-10) Last Admin: 11/05/18 10:04 Dose: 2 tab Admin: 11/05/18 03:38 Dose: 2 tab Admin: 11/04/18 21:15 Dose: 2 tab Admin: 11/04/18 17:06 Dose: 2 tab Admin: 11/04/18 11:46 Dose: 2 tab Admin: 11/04/18 07:45 Dose: 2 tab Admin: 11/04/18 03:37 Dose: 2 tab Admin: 11/03/18 23:37 Dose: 2 tab Admin: 11/03/18 17:50 Dose: 2 tab Admin: 11/03/18 14:09 Dose: 2 tab Pravastatin Sodium (Pravachol) 20 mg PO DAILY [facility] Last Admin: 11/05/18 10:19 Dose: 20 mg Admin: 11/04/18 08:19 Dose: 20 mg Prednisone (Prednisone) 10 mg PO DAILY [facility] Last Admin: 11/05/18 10:21 Dose: 10 mg Admin: 11/04/18 08:19 Dose: 10 mg Ropinirole HCl (Requip) 4 mg PO BEDTIME [facility] Last Admin: 11/04/18 21:15 Dose: 4 mg Admin: 11/03/18 21:09 Dose: 4 mg Tamsulosin HCl (Flomax) 0.4 mg PO DAILY [facility] Last Admin: 11/05/18 10:20 Dose: 0.4 mg Admin: 11/04/18 08:18 Dose: 0.4 mg - Assessment Assessment (Free Text/Narrative):: Not moving well enough for discharge yet, will reassess this afternoon - Plan Plan (Free Text/Narrative):: Light dressing to left knee. continue PT/OT, hopefully discharge tomorrow
[2018-11-05] MEDS: Docusate Sodium 100 MG Cap PO PRN ×2 (13:29→22:16)
[2018-11-05] MEDS: Magnesium Hydroxide 400 MG/5 ML Susp 30 ML Cup PO PRN (13:29)
[2018-11-05] MEDS: rOPINIRole 1 MG Tab PO SCH (22:15)
[2018-11-06] MEDS: Acetaminophen/oxyCODONE 325-5 MG Tab PO PRN ×5 (00:05→20:22)
[2018-11-06] MEDS: Morphine 2 MG/ML Syringe IVPUSH PRN (08:12)
[2018-11-06] MEDS: Nozin Nasal Sanitizer NASBOTH SCH ×2 (08:16→20:19)
[2018-11-06] MEDS: Gabapentin 300 MG Cap PO SCH ×3 (08:17→20:20)
[2018-11-06] MEDS: Losartan 50 MG Tab PO SCH (08:18)
[2018-11-06] MEDS: Tamsulosin 0.4 MG Cap.ER PO SCH (08:18)
[2018-11-06] MEDS: Hydrochlorothiazide 25 MG Tab PO SCH (08:18)
[2018-11-06] MEDS: Enoxaparin 30 MG/0.3 ML Syringe SUBCUT SCH (08:19)
[2018-11-06] MEDS: DULoxetine 30 MG Cap PO SCH (08:19)
[2018-11-06] MEDS: Pravastatin 20 MG Tab PO SCH (08:19)
[2018-11-06] MEDS: predniSONE 10 MG Tab PO SCH (08:19)
--- NOTE | 2018-11-06 17:00 | PCM.SURGPN ---
- General Info Date of Service: 11/06/18 Date of Surgery/Procedure: 11/03/18 POD#: 3 Functional Status: Reports: Tolerating Diet, Ambulating, Urinating - Review of Systems General: Reports: No Symptoms HEENT: Reports: No Symptoms Pulmonary: Reports: No Symptoms Cardiovascular: Reports: No Symptoms Gastrointestinal: Reports: No Symptoms Genitourinary: Reports: No Symptoms Musculoskeletal: Reports: Leg Pain Skin: Reports: No Symptoms Neurological: Reports: No Symptoms Psychiatric: Reports: No Symptoms Systems Review Comment:: Have some concerns about mobility and his living situation, summering up here in and has 4 steps to get up into vehicle. - Patient Data Vitals - Most Recent: Last Vital Signs Temp 36.7 C 11/06/18 15:34 Pulse 81 11/06/18 15:34 Resp 20 11/06/18 15:34 BP 149/80 H 11/06/18 15:34 Pulse Ox 94 L 11/06/18 15:34 Weight - Most Recent: 118.841 kg I&O - Last 24 Hours: Intake & Output 11/06/18 11/06/18 11/06/18 06:59 14:59 22:59 Intake Total 980 Output Total 375 500 Balance -375 480 Med Orders - Current: Current Medications Acetaminophen (Tylenol) 650 mg PO Q4H PRN PRN Reason: Pain/Fever Bandage/Support Products ( Nasal Extrusion Supervisor) 1 applic NASBOTH BID [facility] Stop: 11/09/18 09:01 Last Admin: 11/06/18 08:16 Dose: 1 applic Docusate Sodium (Colace) 100 mg PO BID PRN PRN Reason: Constipation Last Admin: 11/05/18 22:16 Dose: 100 mg Duloxetine HCl (Cymbalta) 60 mg PO DAILY [facility] Last Admin: 11/06/18 08:19 Dose: 60 mg Enoxaparin Sodium (Lovenox) 30 mg SUBCUT DAILY [facility] Last Admin: 11/06/18 08:19 Dose: 30 mg Gabapentin (Neurontin) 600 mg PO TID [facility] Last Admin: 11/06/18 14:16 Dose: 600 mg Hydrochlorothiazide (Hydrochlorothiazide) 25 mg PO DAILY [facility] Last Admin: 11/06/18 08:18 Dose: 25 mg Lactated Ringer's (Ringers, Lactated) 1,000 mls @ 75 mls/hr IV ASDIRECTED [facility] Last Admin: 11/04/18 23:58 Dose: 75 mls/hr Sodium Chloride (Normal Saline) 1,000 mls @ 125 mls/hr IV ASDIRECTED [facility] Losartan Potassium (Cozaar) 100 mg PO DAILY [facility] Last Admin: 11/06/18 08:18 Dose: 100 mg Magnesium Hydroxide (Milk Of Magnesia) 30 ml PO Q8H PRN PRN Reason: Constipation Last Admin: 11/05/18 13:29 Dose: 30 ml Morphine Sulfate (Morphine) 2 mg IVPUSH Q1H PRN PRN Reason: Pain (severe 7-10) Last Admin: 11/06/18 08:12 Dose: 2 mg Oxycodone/Acetaminophen (Percocet 325-5 Mg) 1 - 2 tab PO Q4H PRN PRN Reason: Pain (severe 7-10) Last Admin: 11/06/18 15:44 Dose: 2 tab Pravastatin Sodium (Pravachol) 20 mg PO DAILY [facility] Last Admin: 11/06/18 08:19 Dose: 20 mg Prednisone (Prednisone) 10 mg PO DAILY [facility] Last Admin: 11/06/18 08:19 Dose: 10 mg Ropinirole HCl (Requip) 4 mg PO BEDTIME [facility] Last Admin: 11/05/18 22:15 Dose: 4 mg Tamsulosin HCl (Flomax) 0.4 mg PO DAILY [facility] Last Admin: 11/06/18 08:18 Dose: 0.4 mg Discontinued Medications Bandage/Support Products ( Nasal Extrusion Supervisor) 1 applic NASBOTH BID [facility] Stop: 11/09/18 21:01 Last Admin: 11/03/18 21:07 Dose: Not Given Fentanyl (Sublimaze) Confirm Administered Dose 100 mcg .ROUTE .STK-MED ONE Stop: 11/03/18 08:15 Gabapentin (Neurontin) 300 mg PO ONETIME ONE Stop: 11/03/18 07:46 Last Admin: 11/03/18 08:21 Dose: 300 mg Cefazolin Sodium/Dextrose 2 gm (/ Premix) 50 mls @ 100 mls/hr IV ONETIME ONE Stop: 11/03/18 09:29 Last Admin: 11/03/18 18:02 Dose: Not Given Tranexamic Acid 1,000 mg/ (Sodium Chloride) 60 mls @ 240 mls/hr IV Q3H [facility] Stop: 11/03/18 12:44 Last Admin: 11/03/18 14:02 Dose: 240 mls/hr Lactated Ringer's (Ringers, Lactated) Confirm Administered Dose 1,000 mls @ as directed .ROUTE .STK-MED ONE Stop: 11/03/18 12:04 Cefazolin Sodium/Dextrose 1 gm (/ Premix) 50 mls @ 100 mls/hr IV Q8H [facility] Stop: 11/04/18 10:29 Last Admin: 11/04/18 09:51 Dose: 100 mls/hr Midazolam HCl (Versed 1 Mg/Ml) Confirm Administered Dose 2 mg .ROUTE .STK-MED ONE Stop: 11/03/18 08:16 Povidone Iodine (Betadine 10% Soln) Confirm Administered Dose 1 ml .ROUTE .STK- MED ONE Stop: 11/03/18 09:38 Last Admin: 11/03/18 10:58 Dose: 3 ml Propofol (Diprivan 20 Ml) Confirm Administered Dose 200 mg .ROUTE .STK-MED ONE Stop: 11/03/18 08:16 Propofol (Diprivan 20 Ml) Confirm Administered Dose 200 mg .ROUTE .STK-MED ONE Stop: 11/03/18 10:03 Propofol (Diprivan 20 Ml) Confirm Administered Dose 200 mg .ROUTE .STK-MED ONE Stop: 11/03/18 11:17 - Exam Wound/Incisions: Healing Well, Dressing Dry and Intact, No Drainage General: Alert, Oriented HEENT: Pupils Equal Neck: Supple Lungs: Clear to Auscultation, Normal Respiratory Effort Cardiovascular: Regular Rate, Regular Rhythm GI/Abdominal Exam: Normal Bowel Sounds, Soft, Non-Tender, No Organomegaly, No Distention, No Abnormal Bruit, No Mass, Pelvis Stable Extremities: Other (ROM 5-90 degrees, moderate swelling) Skin: Warm, Dry, Intact Neurological: No New Focal Deficit Psy/Mental Status: Alert, Normal Affect, Normal Mood - Problem List & Annotations (1) Osteoarthritis, knee SNOMED Code(s): 197042884 Code(s): M17.10 - UNILATERAL PRIMARY OSTEOARTHRITIS, UNSPECIFIED KNEE Status: Acute Current Visit: Yes Qualifiers: Osteoarthritis type: primary Laterality: left Qualified Code(s): M17.12 - Unilateral primary osteoarthritis, left knee (2) Status post total left knee replacement SNOMED Code(s): 9365200548196, 3274215931948 Code(s): Z96.652 - PRESENCE OF LEFT ARTIFICIAL KNEE JOINT Status: Acute Current Visit: Yes - Problem List Review Problem List Initiated/Reviewed/Updated: Yes - My Orders Last 24 Hours: Medication Orders Acetaminophen (Tylenol) 650 mg PO Q4H PRN PRN Reason: Pain/Fever Bandage/Support Products ( Nasal Extrusion Supervisor) 1 applic NASBOTH BID [facility] Stop: 11/09/18 09:01 Last Admin: 11/06/18 08:16 Dose: 1 applic Admin: 11/05/18 22:14 Dose: 1 applic Admin: 11/05/18 10:18 Dose: 1 applic Admin: 11/04/18 21:17 Dose: 1 applic Admin: 11/04/18 08:20 Dose: 1 applic Admin: 11/03/18 21:07 Dose: 1 applic Admin: 11/03/18 18:01 Dose: Admin: 11/03/18 08:25 Dose: 1 applic Docusate Sodium (Colace) 100 mg PO BID PRN PRN Reason: Constipation Last Admin: 11/05/18 22:16 Dose: 100 mg Admin: 11/05/18 13:29 Dose: 100 mg Duloxetine HCl (Cymbalta) 60 mg PO DAILY [facility] Last Admin: 11/06/18 08:19 Dose: 60 mg Admin: 11/05/18 10:21 Dose: 60 mg Admin: 11/04/18 08:18 Dose: 60 mg Enoxaparin Sodium (Lovenox) 30 mg SUBCUT DAILY [facility] Last Admin: 11/06/18 08:19 Dose: 30 mg Admin: 11/05/18 10:18 Dose: 30 mg Admin: 11/04/18 08:18 Dose: 30 mg Gabapentin (Neurontin) 600 mg PO TID [facility] Last Admin: 11/06/18 14:16 Dose: 600 mg Admin: 11/06/18 08:17 Dose: 600 mg Admin: 11/05/18 22:16 Dose: 600 mg Admin: 11/05/18 14:44 Dose: 600 mg Admin: 11/05/18 10:19 Dose: 600 mg Admin: 11/04/18 21:15 Dose: 600 mg Admin: 11/04/18 14:53 Dose: 600 mg Admin: 11/04/18 08:19 Dose: 600 mg Admin: 11/03/18 21:08 Dose: 600 mg Admin: 11/03/18 14:10 Dose: 600 mg Hydrochlorothiazide (Hydrochlorothiazide) 25 mg PO DAILY [facility] Last Admin: 11/06/18 08:18 Dose: 25 mg Admin: 11/05/18 10:19 Dose: 25 mg Admin: 11/04/18 08:18 Dose: 25 mg Lactated Ringer's (Ringers, Lactated) 1,000 mls @ 75 mls/hr IV ASDIRECTED [facility] Last Admin: 11/04/18 23:58 Dose: 75 mls/hr Infusion: 11/04/18 23:11 Dose: 75 mls/hr Admin: 11/04/18 09:51 Dose: 75 mls/hr Infusion: 11/04/18 09:51 Dose: 75 mls/hr Admin: 11/03/18 21:57 Dose: 75 mls/hr Infusion: 11/03/18 21:57 Dose: 75 mls/hr Admin: 11/03/18 09:16 Dose: 75 mls/hr Sodium Chloride (Normal Saline) 1,000 mls @ 125 mls/hr IV ASDIRECTED [facility] Losartan Potassium (Cozaar) 100 mg PO DAILY [facility] Last Admin: 11/06/18 08:18 Dose: 100 mg Admin: 11/05/18 10:20 Dose: 100 mg Admin: 11/04/18 08:18 Dose: 100 mg Magnesium Hydroxide (Milk Of Magnesia) 30 ml PO Q8H PRN PRN Reason: Constipation Last Admin: 11/05/18 13:29 Dose: 30 ml Morphine Sulfate (Morphine) 2 mg IVPUSH Q1H PRN PRN Reason: Pain (severe 7-10) Last Admin: 11/06/18 08:12 Dose: 2 mg Admin: 11/05/18 10:10 Dose: 2 mg Admin: 11/04/18 22:24 Dose: 2 mg Admin: 11/04/18 09:49 Dose: 2 mg Admin: 11/03/18 21:04 Dose: 2 mg Admin: 11/03/18 16:09 Dose: 2 mg Oxycodone/Acetaminophen (Percocet 325-5 Mg) 1 - 2 tab PO Q4H PRN PRN Reason: Pain (severe 7-10) Last Admin: 11/06/18 15:44 Dose: 2 tab Admin: 11/06/18 11:14 Dose: 2 tab Admin: 11/06/18 05:13 Dose: 2 tab Admin: 11/06/18 00:05 Dose: 2 tab Admin: 11/05/18 17:42 Dose: 2 tab Admin: 11/05/18 13:29 Dose: 2 tab Admin: 11/05/18 10:04 Dose: 2 tab Admin: 11/05/18 03:38 Dose: 2 tab Admin: 11/04/18 21:15 Dose: 2 tab Admin: 11/04/18 17:06 Dose: 2 tab Admin: 11/04/18 11:46 Dose: 2 tab Admin: 11/04/18 07:45 Dose: 2 tab Admin: 11/04/18 03:37 Dose: 2 tab Admin: 11/03/18 23:37 Dose: 2 tab Admin: 11/03/18 17:50 Dose: 2 tab Admin: 11/03/18 14:09 Dose: 2 tab Pravastatin Sodium (Pravachol) 20 mg PO DAILY [facility] Last Admin: 11/06/18 08:19 Dose: 20 mg Admin: 11/05/18 10:19 Dose: 20 mg Admin: 11/04/18 08:19 Dose: 20 mg Prednisone (Prednisone) 10 mg PO DAILY [facility] Last Admin: 11/06/18 08:19 Dose: 10 mg Admin: 11/05/18 10:21 Dose: 10 mg Admin: 11/04/18 08:19 Dose: 10 mg Ropinirole HCl (Requip) 4 mg PO BEDTIME [facility] Last Admin: 11/05/18 22:15 Dose: 4 mg Admin: 11/04/18 21:15 Dose: 4 mg Admin: 11/03/18 21:09 Dose: 4 mg Tamsulosin HCl (Flomax) 0.4 mg PO DAILY [facility] Last Admin: 11/06/18 08:18 Dose: 0.4 mg Admin: 11/05/18 10:20 Dose: 0.4 mg Admin: 11/04/18 08:18 Dose: 0.4 mg - Assessment Assessment (Free Text/Narrative):: Walking well enough for flat surfaces but not proficient enough for the number and type of stairs he has to get into RV. Has a studio but does not have a bed in it yet. Will admit inpatient and keep tonight to allow more PT for stairs and let them make arrangements for him to stay in studio. - Plan Plan (Free Text/Narrative):: Continue PT/OT tomorrow AM and plan discharge late morning or afternoon.
[2018-11-06] MEDS: rOPINIRole 1 MG Tab PO SCH (20:20)
[2018-11-07] MEDS: Acetaminophen/oxyCODONE 325-5 MG Tab PO PRN ×2 (02:16→07:46)
[2018-11-07] MEDS: Nozin Nasal Sanitizer NASBOTH SCH (09:15)
[2018-11-07] MEDS: Magnesium Hydroxide 400 MG/5 ML Susp 30 ML Cup PO PRN (09:15)
[2018-11-07] MEDS: Docusate Sodium 100 MG Cap PO PRN (09:15)
[2018-11-07] MEDS: Tamsulosin 0.4 MG Cap.ER PO SCH (09:15)
[2018-11-07] MEDS: Pravastatin 20 MG Tab PO SCH (09:15)
[2018-11-07] MEDS: DULoxetine 30 MG Cap PO SCH (09:16)
[2018-11-07] MEDS: Losartan 50 MG Tab PO SCH (09:16)
[2018-11-07] MEDS: Gabapentin 300 MG Cap PO SCH (09:18)
[2018-11-07] MEDS: predniSONE 10 MG Tab PO SCH (09:18)
[2018-11-07] MEDS: Enoxaparin 30 MG/0.3 ML Syringe SUBCUT SCH (09:18)
[2018-11-07] MEDS: Hydrochlorothiazide 25 MG Tab PO SCH (09:18)
[2018-11-07] MEDS: Morphine 2 MG/ML Syringe IVPUSH PRN (10:37)
--- NOTE | 2018-11-12 16:27 | PCM.DCSUM1 ---
Discharge Summary - Hospital Course HPI Initial Comments: 73 year old admitted for left TKA. Has OA of both knees and right hip. Limited mobility, obesity, sleep apnea, HTN, CAD. Diagnosis: Stroke: No - Discharge Data Discharge Date: 11/07/18 Discharge Disposition: Home, W Home Health Agency 06 Condition: Good - Discharge Diagnosis/Problem(s) (1) Osteoarthritis, knee SNOMED Code(s): 676204640 ICD Code: M17.10 - UNILATERAL PRIMARY OSTEOARTHRITIS, UNSPECIFIED KNEE Status: Acute Qualifiers: Osteoarthritis type: primary Laterality: left Qualified Code(s): M17.12 - Unilateral primary osteoarthritis, left knee (2) Status post total left knee replacement SNOMED Code(s): 9676676571507, [id number] ICD Code: Z96.652 - PRESENCE OF LEFT ARTIFICIAL KNEE JOINT Status: Acute - Patient Summary/Data Operative Procedure(s) Performed: Left TKA Consults: Consultations 11/03/18 12:39 PT Evaluation and Treatment [CONS] Routine Please Evaluate and Treat. PT Reason for Consult: Ambulation Discharge Disposition: Home w Home Health Special Instructions: WBAT This query below is only for informational purposes and is not editable. 11/06/18 17:07 Consult to Occupational Therapy [OT Evaluation and Treatment] [CONS] Routine Please Evaluate and Treat. OT Reason for Consult: ADL's Pending Discharge: Yes Discharge Disposition: Home w Home Health Special Instructions: Adaptive devices and tips for ADLS, Thank You. This query below is only for informational purposes and is not editable. Admission Diagnosis/Problem: Osteoarthritis Hospital Course: Tolerated surgery fairly well. Had some difficulty with pain post-operatively. Progressed slowly with PT. Eventually was doing well with ambulation but needed work with stairs. Dressing was changed POD #2 and there were no wound complications. Used CPAP during the night. Did have some oxygen desaturations during the day but was OK on room air prior to discharge. Patient declined transfer to SNF and arrangements were made for Home Health to follow. Discharged with prescriptions for pain medications and Lovenox. - Patient Instructions Diet: Usual Diet as Tolerated Activity: Apply Ice, As Tolerated, Elevate Extremity, Full Weight Bearing Driving: Do Not Drive Showering/Bathing: May Shower Wound/Incision Care: Change Dressing Daily Notify Provider of: Fever, Increased Pain, Swelling and Redness, Drainage, Nausea and/or Vomiting - Discharge Plan *PRESCRIPTION DRUG MONITORING PROGRAM REVIEWED*: No *COPY OF PRESCRIPTION DRUG MONITORING REPORT IN PATIENT MAIN: No Home Medications: Home Meds DULoxetine HCl [Duloxetine HCl] 60 mg PO DAILY 11/14/17 [History] Gabapentin [Neurontin] 600 mg PO TID 11/14/17 [History] Losartan [Cozaar] 100 mg PO DAILY 11/14/17 [History] Pravastatin Sodium 20 mg PO DAILY 11/14/17 [History] Tamsulosin HCl 0.4 mg PO DAILY 11/14/17 [History] hydroCHLOROthiazide [Hydrochlorothiazide] 25 mg PO DAILY 11/14/17 [History] predniSONE [Prednisone] 10 mg PO DAILY 11/14/17 [History] traMADol HCl [Tramadol HCl] 100 mg PO TID 11/14/17 [History] rOPINIRole [Requip] 4 mg PO BEDTIME tablet 11/16/17 [Rx] Aspirin 81 mg PO DAILY 10/21/18 [History] Acetaminophen/oxyCODONE [Percocet 325-5 MG] 1 tab PO Q4HR PRN 11/07/18 [History] Enoxaparin Sodium [Lovenox] 120 mg SQ BID #6 ml 11/10/18 [Rx] Other Amb Orders: PT Evaluation and Treatment [CONS] Time Frame: 3 Days, Location: None Selected Oxygen Therapy Mode: Room Air Patient Handouts: Total Knee Replacement, Care After, [id number], Preventing Constipation After Surgery Referrals: Richard Sanders MD [Physician] - 11/18/18 10:30 am (Please arrive 15 minutes early to register for your appointment. Please check in at ER desk.) - Discharge Summary/Plan Comment DC Time >30 min.: Yes - General Info Functional Status: Reports: Pain Controlled, Tolerating Diet, Ambulating, Urinating - Review of Systems General: Reports: No Symptoms HEENT: Reports: No Symptoms Pulmonary: Reports: No Symptoms Cardiovascular: Reports: No Symptoms Gastrointestinal: Reports: No Symptoms Genitourinary: Reports: No Symptoms Musculoskeletal: Reports: No Symptoms Skin: Reports: No Symptoms Neurological: Reports: No Symptoms Psychiatric: Reports: No Symptoms - Patient Data Vitals - Most Recent: Last Vital Signs Temp 36.1 C 11/07/18 07:00 Pulse 74 11/07/18 07:00 Resp 18 11/07/18 07:00 BP 139/60 11/07/18 09:16 Pulse Ox 94 L 11/07/18 07:00 Weight - Most Recent: 118.841 kg Med Orders - Current: Current Medications Discontinued Medications Acetaminophen (Tylenol) 650 mg PO Q4H PRN PRN Reason: Pain/Fever Bandage/Support Products ( Nasal Chief Compressor Station Engineer) 1 applic NASBOTH BID [facility] Stop: 11/09/18 09:01 Last Admin: 11/07/18 09:15 Dose: 1 applic Bandage/Support Products ( Nasal Chief Compressor Station Engineer) 1 applic NASBOTH BID [facility] Stop: 11/09/18 21:01 Last Admin: 11/03/18 21:07 Dose: Not Given Docusate Sodium (Colace) 100 mg PO BID PRN PRN Reason: Constipation Last Admin: 11/07/18 09:15 Dose: 100 mg Duloxetine HCl (Cymbalta) 60 mg PO DAILY [facility] Last Admin: 11/07/18 09:16 Dose: 60 mg Enoxaparin Sodium (Lovenox) 30 mg SUBCUT DAILY [facility] Last Admin: 11/07/18 09:18 Dose: 30 mg Fentanyl (Sublimaze) Confirm Administered Dose 100 mcg .ROUTE .STK-MED ONE Stop: 11/03/18 08:15 Gabapentin (Neurontin) 300 mg PO ONETIME ONE Stop: 11/03/18 07:46 Last Admin: 11/03/18 08:21 Dose: 300 mg Gabapentin (Neurontin) 600 mg PO TID [facility] Last Admin: 11/07/18 09:18 Dose: 600 mg Hydrochlorothiazide (Hydrochlorothiazide) 25 mg PO DAILY [facility] Last Admin: 11/07/18 09:18 Dose: 25 mg Cefazolin Sodium/Dextrose 2 gm (/ Premix) 50 mls @ 100 mls/hr IV ONETIME ONE Stop: 11/03/18 09:29 Last Admin: 11/03/18 18:02 Dose: Not Given Lactated Ringer's (Ringers, Lactated) 1,000 mls @ 75 mls/hr IV ASDIRECTED [facility] Last Admin: 11/04/18 23:58 Dose: 75 mls/hr Tranexamic Acid 1,000 mg/ (Sodium Chloride) 60 mls @ 240 mls/hr IV Q3H [facility] Stop: 11/03/18 12:44 Last Admin: 11/03/18 14:02 Dose: 240 mls/hr Lactated Ringer's (Ringers, Lactated) Confirm Administered Dose 1,000 mls @ as directed .ROUTE .STK-MED ONE Stop: 11/03/18 12:04 Cefazolin Sodium/Dextrose 1 gm (/ Premix) 50 mls @ 100 mls/hr IV Q8H [facility] Stop: 11/04/18 10:29 Last Admin: 11/04/18 09:51 Dose: 100 mls/hr Sodium Chloride (Normal Saline) 1,000 mls @ 125 mls/hr IV ASDIRECTED [facility] Losartan Potassium (Cozaar) 100 mg PO DAILY [facility] Last Admin: 11/07/18 09:16 Dose: 100 mg Magnesium Hydroxide (Milk Of Magnesia) 30 ml PO Q8H PRN PRN Reason: Constipation Last Admin: 11/07/18 09:15 Dose: 30 ml Midazolam HCl (Versed 1 Mg/Ml) Confirm Administered Dose 2 mg .ROUTE .STK-MED ONE Stop: 11/03/18 08:16 Morphine Sulfate (Morphine) 2 mg IVPUSH Q1H PRN PRN Reason: Pain (severe 7-10) Last Admin: 11/07/18 10:37 Dose: 2 mg Oxycodone/Acetaminophen (Percocet 325-5 Mg) 1 - 2 tab PO Q4H PRN PRN Reason: Pain (severe 7-10) Last Admin: 11/07/18 07:46 Dose: 2 tab Povidone Iodine (Betadine 10% Soln) Confirm Administered Dose 1 ml .ROUTE .STK- MED ONE Stop: 11/03/18 09:38 Last Admin: 11/03/18 10:58 Dose: 3 ml Pravastatin Sodium (Pravachol) 20 mg PO DAILY [facility] Last Admin: 11/07/18 09:15 Dose: 20 mg Prednisone (Prednisone) 10 mg PO DAILY [facility] Last Admin: 11/07/18 09:18 Dose: 10 mg Propofol (Diprivan 20 Ml) Confirm Administered Dose 200 mg .ROUTE .STK-MED ONE Stop: 11/03/18 08:16 Propofol (Diprivan 20 Ml) Confirm Administered Dose 200 mg .ROUTE .STK-MED ONE Stop: 11/03/18 10:03 Propofol (Diprivan 20 Ml) Confirm Administered Dose 200 mg .ROUTE .STK-MED ONE Stop: 11/03/18 11:17 Ropinirole HCl (Requip) 4 mg PO BEDTIME [facility] Last Admin: 11/06/18 20:20 Dose: 4 mg Tamsulosin HCl (Flomax) 0.4 mg PO DAILY [facility] Last Admin: 11/07/18 09:15 Dose: 0.4 mg - Exam General: Reports: Alert, Oriented HEENT: Reports: Pupils Equal, Pupils Reactive, EOMI, Mucous Membr. Moist/[place] Neck: Reports: Supple Lungs: Reports: Clear to Auscultation, Normal Respiratory Effort Cardiovascular: Reports: Regular Rate, Regular Rhythm GI/Abdominal Exam: Normal Bowel Sounds, Soft, Non-Tender, No Organomegaly, No Distention, No Abnormal Bruit, No Mass, Pelvis Stable (Male) Exam: Deferred Rectal (Males) Exam: Deferred Back Exam: Reports: Normal Inspection, Full Range of Motion Extremities: Joint Swelling, Limited Range of Motion Skin: Reports: Warm, Dry, Intact Wound/Incisions: Reports: Dressing Dry and Intact, No Drainage Neurological: Reports: No New Focal Deficit Psy/Mental Status: Reports: Alert, Normal Affect, Normal Mood
--- NOTE | 2018-11-14 09:40 | OR ---
DATE OF PROCEDURE: 11/03/2018 PREOPERATIVE DIAGNOSIS: Osteoarthritis, left knee. POSTOPERATIVE DIAGNOSIS: Osteoarthritis, left knee. PROCEDURE: Left total knee arthroplasty using [employer] components consisting of a size 8 femur, size F tibia, 35 mm patella, and 12 mm tibial polyethylene. ANESTHESIA: Spinal. INDICATIONS: Mr. Carballo is a 73-year-old male with a history of progressive pain in the left knee for the past year, which has gotten significantly worse over the past several months. He also has a history of right knee pain and right hip pain. He had previously considered having left hip procedure done this spring. However, his left knee has become severe enough to limit his activities. He has failed conservative treatment with injections and now presents for left total knee arthroplasty. Risks, benefits, potential complications of the procedure were discussed and he agrees to proceed. PROCEDURE IN DETAIL: After adequate anesthesia was obtained, the patient was placed in the supine position and a tourniquet was applied to the left upper thigh. Left leg was then prepped and draped in a sterile fashion. Leg was exsanguinated and tourniquet inflated to 300 mmHg. A longitudinal incision was made over the anterior aspect of the knee and carried down to the subcutaneous tissues. A medial parapatellar approach was utilized. The patella was partially everted. Portion of the fat pad and the synovium were excised around the patella. Oscillating saw was then used to resect the posterior aspect of the patella. Degenerative changes noted throughout the medial femoral condyle and patellofemoral joint. Knee was flexed, and the intramedullary drill was utilized to obtain access to the femoral canal. Intramedullary femoral guide was then placed. The distal femur was then cut at 6 degrees of valgus. Anterior and posterior cruciate ligaments were divided with electrocautery and the extramedullary tibial alignment jig was then placed. This was aligned and pinned in place. The proximal tibia was then resected. The proximal tibial bone was removed and the medial and lateral menisci were excised. Attention was returned to the femur. This was sized and D cutting jig was then secured. Remaining femoral cuts were then made including an intercondylar notch cut for a posterior cruciate-sacrificing component. The tibia was then sized. Tibial plate was secured with pins and drilled and punched. The trial components were then placed. A 12 mm polyethylene insert provided excellent balance in flexion and extension. Good stability. The patella was resurfaced with a 35 mm patellar button and this tracked well. Trial components were then removed. The knee was then thoroughly irrigated with pulse lavage. The surfaces were dried. Components were cemented in place. Excess cement was removed. A trial 12 mm poly was placed and the knee was held in full extension as the cement cured. Once this was done, the knee was trialed once again and provided excellent balance in flexion and extension, and good stability with the 12 mm trial. The trial was removed and the final polyethylene was snapped into position. The knee was irrigated once again. This included an irrigation with a dilute Betadine solution. The capsule was then closed with #1 Ethibond in interrupted fashion. Skin was closed with 2-0 Vicryl and a running 3-0 Monocryl. Steri- Strips were applied. Light compressive dressing was then placed. The patient tolerated the procedure well and there were no complications, was taken from the operating room in a stable condition. Richard Sanders MD /[id number]
== END 2018-11-07 12:40 | disposition home health service (06) | DRG 470 ==
LOC: JP.SDS 07:07 → JP.MS 12:39 → JP.SDS 11-04 13:35 → OBSVTOIN 11-06 16:40
PROVIDERS: ADMIT Specialist; ATTEND Specialist
PROC: 0SRD0J9 Replacement of Left Knee Joint with Synthetic Substitute, Cemented, Open Approach (ICD-10-PCS; principal; 2018-11-03)
DX: M17.12 Unilateral primary osteoarthritis, left knee (principal); I25.810 Atherosclerosis of coronary artery bypass graft(s) without angina pectoris; I10 Essential (primary) hypertension; E78.5 Hyperlipidemia, unspecified; H91.90 Unspecified hearing loss, unspecified ear; F32.9 Major depressive disorder, single episode, unspecified; M10.9 Gout, unspecified; E05.90 Thyrotoxicosis, unspecified without thyrotoxic crisis or storm; Z88.8 Allergy status to other drugs, medicaments and biological substances; Z79.82 Long term (current) use of aspirin; Z79.52 Long term (current) use of systemic steroids; Z95.1 Presence of aortocoronary bypass graft; Z79.899 Other long term (current) drug therapy
CPT/HCPCS: 27447; 36415 ×2; 73560 ×2; 85027; 86850; 86900; 86901; 97110 ×6; 97116 ×2; 97161; 97530 ×5; 97535; A9270 ×55; C1713; C1776 ×4; J0690 ×4; J1650 ×3; J2250; J2270 ×6; J2704 ×3; J3010; J7050 ×2; J7120 ×5; 97165-GO

== ENCOUNTER 2018-11-10 13:59 | Emergency (ER) | payer MEDICARE, BC ==
[2018-11-10] MEDS ORDERED: Enoxaparin 150 MG/1 ML Syringe SUBCUT SCH (15:30)
[2018-11-10] MEDS ORDERED: Sodium Chloride 0.9% 10 ML Syringe FLUSH ONE (15:31)
[2018-11-10] MEDS ORDERED: Sodium Chloride 0.9% 10 ML Syringe FLUSH PRN (15:37)
[2018-11-10] MEDS ORDERED: Morphine 4 MG/ML Syringe IVPUSH ONE (15:37)
[2018-11-10] MEDS ORDERED: Sodium Chloride 0.9% 100 ML IV SCH (15:45)
[2018-11-10] MEDS ORDERED: Iopamidol 755 Mg/ML 100 ML Bottle IV SCH (15:45)
--- NOTE | 2018-11-10 16:13 | CRLUS ---
INDICATION: Left leg swelling one-week post TKA. TECHNIQUE: Grayscale two-dimensional ultrasound without and with compression as well as color-flow and spectral Doppler of the left lower extremity veins. COMPARISON: None. FINDINGS: Acute occlusive thrombus in the left peroneal vein is demonstrated. Normal compressibility of and flow within the left common femoral, superficial femoral, popliteal, posterior tibial, profunda, and greater saphenous veins is demonstrated. No thrombus is identified. The right common femoral vein is clear. IMPRESSION: Acute occlusive DVT in the left peroneal vein. The electronic technologist provided the emergency room with this information in a preliminary report prior to this dictation. Dictated by Cory Funez MD @ Nov 10 2018 4:07PM Signed by Dr. Cory Funez @ Nov 10 2018 4:10PM
--- NOTE | 2018-11-10 18:02 | CRLCT ---
INDICATION: Positive DVT, shortness of breath TECHNIQUE: CT chest pulmonary angiogram acquired with IV contrast. 100 cc Isovue 370 COMPARISON: None FINDINGS: Cardiovascular structures: Normal vascular enhancement of the pulmonary arteries, no sign of pulmonary embolism. Heart size is normal. No sign of aneurysm or dissection in the thoracic aorta. Mediastinum and neil: 4.5 centimeter x 3.0 centimeter x 3.0 centimeter mass emanating from the posterior aspect of the right lobe of the thyroid gland and extending into the right upper Lungs: Clear. Pleura and pericardium: No effusions. Chest wall and axilla: No mass or adenopathy. Bones: Kyphotic and degenerative changes thoracic spine. Upper abdomen: Hiatal hernia. IMPRESSION: No pulmonary embolism, aortic dissection, or pneumonia. 4.5 centimeter x 3.0 centimeter x 3.0 centimeter mass emanating from the posterior aspect of the right lobe of the thyroid gland and extending to the right superior anterior mediastinum. Diffuse low-attenuation thyroid nodules. Hiatal hernia. Dictated by Brian Byrnes MD @ 11/10/2018 6:01:01 PM Please note that all CT scans at this facility use dose modulation, iterative reconstruction, and/or weight-based dosing when appropriate to reduce radiation dose to as low as reasonably achievable. Dictated by: Brian Byrnes MD @ 11/10/2018 18:01:38 (Electronically Signed)
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
== END 2018-11-10 19:02 | disposition home or self-care (01) ==
LOC: JP.ED 13:59
DX: I82.4Z2 Acute embolism and thrombosis of unspecified deep veins of left distal lower extremity (principal); S81.012A Laceration without foreign body, left knee, initial encounter; I10 Essential (primary) hypertension; E66.9 Obesity, unspecified; Z88.2 Allergy status to sulfonamides; Z91.09 Other allergy status, other than to drugs and biological substances; Z79.82 Long term (current) use of aspirin; Z79.899 Other long term (current) drug therapy; Z95.1 Presence of aortocoronary bypass graft; Z98.890 Other specified postprocedural states; Z90.49 Acquired absence of other specified parts of digestive tract; Z87.891 Personal history of nicotine dependence; X58.XXXA Exposure to other specified factors, initial encounter
CPT/HCPCS: 36415; 71275; 80053; 83880; 85025; 85651; 86140; 93971; 96372; 96374; 99284; J1650; J2270; J7030; Q9967; 12002

== ENCOUNTER 2018-11-15 20:09 | Emergency (ER) | payer MEDICARE, BC ==
--- NOTE | 2018-11-15 22:39 | CRLCR ---
TECHNIQUE: PA and lateral chest. INDICATION: Fever. FINDINGS: Shallow inspiration with resulting enlargement of the cardiac silhouette and mild bibasilar atelectasis. Lungs otherwise clear. Sternotomy. There are dilated loops of small bowel in the visualized left upper quadrant. Consider abdomen x-ray and further evaluation if the patient is having abdominal symptoms. Dictated by Ignacio Archibald MD @ 11/15/2018 10:37:51 PM Dictated by: Ignacio Archibald MD @ 11/15/2018 22:37:55 (Electronically Signed)
[2018-11-15] MEDS ORDERED: cefTRIAXone 1 GM, Lidocaine 1% 2.1 ML IM ONE ×2 (23:27)
[2018-11-15] MEDS ORDERED: HYDROmorphone 1 MG/ML Syringe IM ONE (23:29)
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
== END 2018-11-15 23:50 | disposition home or self-care (01) ==
LOC: JP.ED 20:09
DX: L03.116 Cellulitis of left lower limb (principal); I10 Essential (primary) hypertension; E66.9 Obesity, unspecified; Z88.2 Allergy status to sulfonamides; Z88.1 Allergy status to other antibiotic agents; Z91.09 Other allergy status, other than to drugs and biological substances; Z79.82 Long term (current) use of aspirin; Z79.899 Other long term (current) drug therapy; Z98.890 Other specified postprocedural states; Z90.49 Acquired absence of other specified parts of digestive tract
CPT/HCPCS: 36415; 71046; 80048; 85025; 87040; 96372; 99283; J0696; J1170; J2001